=== PATIENT | male | born 1970 | race Caucasian/White ===

== ENCOUNTER → 2021-08-11 10:22 | Outpatient (BNVA) | payer OTHER, MEDICAID, SELFPAY | PROVIDERS: PCP Family Medicine; Visit Provider Nurse Practitioner Family | DX: Z13.6 Encounter for screening for cardiovascular disorders (principal); Z76.89 Persons encountering health services in other specified circumstances; Z71.3 Dietary counseling and surveillance; Z71.82 Exercise counseling; M54.40 Lumbago with sciatica, unspecified side; G89.29 Other chronic pain; M67.431 Ganglion, right wrist | CPT/HCPCS: 80053; 80061; 84443; 85025 ==

== ENCOUNTER → 2021-08-13 12:56 | Outpatient (BNVA) | payer OTHER, MEDICAID, SELFPAY | PROVIDERS: PCP Family Medicine; Visit Provider Nurse Practitioner Family | DX: R73.09 Other abnormal glucose (principal); R73.9 Hyperglycemia, unspecified | CPT/HCPCS: 83036 ==

== ENCOUNTER 2021-10-23 16:34 | Inpatient (IN) | payer MEDICAID, SELFPAY ==
[2021-10-23 16:43] VITALS: BP 176/94; PULSE 89; RESP 16; TEMP 36.6; O2SAT 96
[2021-10-23 17:34] LABS: Basophils # 0.1 10^3/uL (0.0-0.1); Basophils % 0.8 %; Eosinophils % 0.2 %; Hematocrit 53.8 % (42.0-52.0); Hemoglobin 18.6 g/dL (11.7-16.6); Lymphocytes # 2.8 10^3/uL (0.8-4.8); Lymphocytes % 28.2 %; Mean Corpuscular HGB Conc 34.6 g/dL (30.0-36.0); Mean Corpuscular Hemoglobin 29.8 pg (28.0-34.0); Mean Corpuscular Volume 86.1 fl (80-94); Mean Platelet Volume 10.9 fL (7.4-10.4); Monocytes # 0.9 10^3/uL (0.2-0.9); Monocytes % 8.6 %; Neutrophils # 6.09 10^3/uL (1.8-7.7); Neutrophils % 61.9 %; Nucleated Red Blood Cells % 0 %; Platelet Count 269 10^3/cmm (130-400); Red Blood Count 6.25 10^6/uL (4.1-5.3); Red Cell Distribution Width 11.9 % (12.1-15.1); White Blood Count 9.8 10^3/uL (4.0-10.0)
[2021-10-23 17:49] LABS: Amphetamines Screen Urine Negative (Negative); Barbiturates Screen Urine Negative (Negative); Benzodiazepines Screen Urine Negative (Negative); Cocaine Screen Urine Negative (Negative); Opiate Screen Urine Negative (Negative); PCP Screen Urine Negative (Negative); THC Screen Urine Negative (Negative)
--- NOTE | 2021-10-23 17:57 | CTR_ITS ---
PROCEDURE INFORMATION: Exam: CT Head Without Contrast Exam date and time: 10/23/2021 5:57 PM Age: 51 years old Clinical indication: Altered mental status/memory loss; Prior surgery; Patient HX: AMS TECHNIQUE: Imaging protocol: Computed tomography of the head without contrast. Radiation optimization: All CT scans at this facility use at least one of these dose optimization techniques: automated exposure control; mA and/or kV adjustment per patient size (includes targeted exams where dose is matched to clinical indication); or iterative reconstruction. COMPARISON: No relevant prior studies available. RADIATION DOSE METRICS: Total DLP (mGy-cm): 910 FINDINGS: Brain: Normal. No hemorrhage. Unremarkable white matter. No mass effect. Cerebral ventricles: No ventriculomegaly. Paranasal sinuses: Visualized sinuses are unremarkable. No fluid levels. Mastoid air cells: Visualized mastoid air cells are well aerated. Bones/joints: Unremarkable. No acute fracture. Soft tissues: Unremarkable. CT/CT head wo con* [id number] IMPRESSION: No acute intracranial abnormality.
--- NOTE | 2021-10-23 17:58 | ED.C_ITS ---
HPI - Psych General: Chief Complaint: Psychiatric Symptoms Stated Complaint: MHE Time Seen by Provider: 10/23/21 17:16 Source: family (spouse) Mode of arrival: ambulatory History of Present Illness: This patient is brought to the emergency department by his spouse. She provides most of the history as the patient is really reluctant to communicate much with this physician. She states that she has noted over the past number of days that he has become more withdrawn and also she is noted that he is having more auditory hallucinations. She states that there are periods where he will seem to interact in a normal fashion none there were more prolonged periods more recently when he begins to withdraw and going to his own world . She states that he occasionally had episodes like this in the past and used to drink quite heavily but has not drank for the last 6 months. She relates that he has never had thoughts of harming himself and has not expressed any of those thoughts recently. He really is otherwise healthy takes no daily medicines other than occasional [id number] analgesics for her chronic back pain. He has had no history of drug use. He has had no recent illness cough fever nausea vomiting diarrhea expect etc. No history of head trauma. He has never been treated for any psychiatric illnesses previously. Duration: intermittent and getting worse Associated symptoms: Reports auditory hallucinations and visual hallucinations; Deny homicidal ideation or suicidal ideation Treatments prior to arrival: none Review of Systems Const: Denies: fever(s) or chills Eyes: Denies: change in vision ENMT: Denies: throat pain Card: Denies: chest pain or palpitations Resp: Denies: dyspnea, productive cough or non-productive cough GI: Denies: abdominal pain, nausea or vomiting : Denies: flank pain, difficulty urinating or dysuria Musc: Reports: back pain; Denies: extremity pain or extremity swelling Skin/Breast: Denies: rash or pruritus Neuro: Denies: headache(s), numbness in extremities or weakness in extremities Psych: Reports: sleeping less, paranoia, visual hallucinations and auditory hallucinations; Denies: suicidal ideation or homicidal ideation Tam/Lymph: Denies: easy bruising or easy bleeding [facility] ED PFSH: Medical History Lumbar back pain with radiculopathy affecting lower extremity Sciatic leg pain both Surgical History No significant past surgical history Family History (Updated 08/18/21 @ 16:12 by ROBLES Hdez) Father Diabetes Mother Cancer Mandible Sister Diabetes Social History Smoking and tobacco status: former smoker Second hand smoke exposure: No Alcohol intake: former Desire information about alcohol rehabilitation?: No Counseling given: No Desire information about substance/drug rehabilitation?: No Counseling given: No Adopted: No Caregiver/support person: No Lives independently: Yes Household members: spouse and family Housing: House Marital status: Number of children: 1 Highest education level completed: High School Graduate service: No Current occupational status: unemployed Current occupational exposures/hazards: No Pets and animals: No History of recent travel: No Current gender identity: Male Physical Exam Narrative: EXAM NARRATIVE: Patient makes good eye contact but when asked questions the patient does not verbalize any answers he generally shrugs or will look at his to aid him in answering the questions. Const: COMMON NORMALS: no acute distress and alert GENERAL APPEARANCE: cooperative and well kempt HENMT: COMMON NORMALS: normocephalic, atraumatic and moist oral mucous membranes HEAD & SCALP: normocephalic and atraumatic FACE & SINUS: normal facial exam and sinuses nontender Eye: COMMON NORMALS: Equal, round and reactive pupils present, EOMs intact bilaterally and no scleral icterus PUPIL: Yes Equal, round and reactive pupils present Neck/C-Spine: COMMON NORMALS: full ROM, no lymphadenopathy, supple and no meningeal signs Lymph: LYMPHATIC: no lymphadenopathy noted Chest: COMMONS NORMALS: normal inspection of the chest and normal palpation of entire chest wall Resp: COMMON NORMALS: normal respiratory effort, No retractions, No use of accessory muscles and clear to auscultation bilaterally AUSCULTATION: clear to auscultation bilaterally Cardio: COMMON NORMALS: regular rhythm, No gallops present (Cardio), No murmurs present (Cardio) and Peripheral pulses 2+ throughout RHYTHM: regular rhythm PERIPHERAL PULSES: Peripheral pulses 2+ throughout GI: COMMON NORMALS: Normal to inspection, nondistended, normoactive bowel sounds present, Soft to palpation and non-tender PALPATION: Yes Soft to palpation : COMMON NORMALS: Yes no CVA tenderness BLADDER/KIDNEY EXAM: Yes no CVA tenderness Back/Pelvis: COMMON NORMALS: no CVA tenderness, thoracic and lumbar spine normal to inspection, no thoracic nor lumbar tenderness, thoraco-lumbar ROM normal and straight leg raise negative bilaterally Extremity: COMMON NORMALS: normal to inspection, full ROM, capillary refill normal, no calf tenderness and no pedal edema Neuro: COMMON NORMALS: moves all extremities, no focal motor deficits, no sensory deficits noted and gait normal SENSORIUM/ORIENTATION: Yes alert MENINGEAL SIGNS: Yes no meningeal signs GAIT: Yes Normal gait present Psych: APPEARANCE: Yes well kempt ATTITUDE: Yes calm ACTIVITY/MOTOR BEHAVIOR: Yes appropriate eye contact SPEECH: Yes Other speech symptoms (Will not speak to the physician) Skin: COMMON NORMALS: no rashes or lesions noted, no wounds and turgor normal GENERAL SKIN EXAM: no rashes or lesions noted and turgor normal Course ED course: Patient remained stable. He is medically cleared to be evaluated by psychiatry. Consultations: Consultation #1: Discussed with Dr. Pedraza who agreed to admit patient. Time: 18:56 Vital Signs: Vital signs: Vital Signs Temperature 97.8 F 10/23/21 16:43 Pulse Rate 82 10/23/21 18:42 Respiratory Rate 16 10/23/21 18:42 Blood Pressure 175/103 10/23/21 18:42 Pulse Oximetry 94 10/23/21 18:42 MDM - Psych Medical Decision Making Patient is currently medically cleared. No evidence at this time of any clear medical etiology for his psychosis. Both he and his spouse are willing to be a dmitted for further evaluation and treatment as indicated. Differential Diagnosis Likely acute psychosis Medical Records I reviewed the patient's medical records. Lab Data I reviewed the patient's lab results. : 10/23/21 17:26 10/23/21 17:[address] 10/23/21 17:57 IMPRESSION: No acute intracranial abnormality. Laboratory Results WBC 9.8 10^3/uL (4.0-10.0) 10/23/21 17:26 RBC 6.25 10^6/uL (4.1-5.3) H 10/23/21 17:26 Hgb 18.6 g/dL (11.7-16.6) H 10/23/21 17:26 Hct 53.8 % (42.0-52.0) H 10/23/21 17: MCV 86.1 fl (80-94) 10/23/21 17: MCH 29.8 pg (28.0-34.0) 10/23/21 17: MCHC 34.6 g/dL (30.0-36.0) 10/23/21 17: RDW 11.9 % (12.1-15.1) L 10/23/21 17: Plt Count 269 10^3/cmm (130-400) 10/23/21 17: MPV 10.9 fL (7.4-10.4) H 10/23/21 17: Neut % (Auto) 61.9 % 10/23/21 17: Lymph % (Auto) 28.2 % 10/23/21 17: Calloway % (Auto) 8.6 % 10/23/21 17: Eos % (Auto) 0.2 % 10/23/21 17: Baso % (Auto) 0.8 % 10/23/21 17: Neut # (Auto) 6.09 10^3/uL (1.8-7.7) 10/23/21 17: Lymph # (Auto) 2.8 10^3/uL (0.8-4.8) 10/23/21 17: Calloway # (Auto) 0.9 10^3/uL (0.2-0.9) 10/23/21 17: Eos # (Auto) 0.0 10^3/uL (0.0-0.8) 10/23/21 17: Baso # (Auto) 0.1 10^3/uL (0.0-0.1) 10/23/21 17: Nucleated RBC % (auto) 0 % 10/23/21: Nucleated RBCs # 0.0 /100WBC 10/23/21 17: Sodium 133 mmol/L (136-145) L 10/23/21 17: Potassium 3.9 mmol/L (3.5-5.1) 10/23/21 17: Chloride 96 mmol/L (98-107) L 10/23/21 17: Carbon Dioxide 20 mmol/L (22-29) L 10/23/21 17:26 Anion Gap 20.9 (5-19) H 10/23/21 17:26 BUN 9 mg/dL (6-20) 10/23/21 17:26 Creatinine 0.7 mg/dL (0.7-1.2) 10/23/21 17:26 GFR Calculation 118.4 mL/min (90-130) 10/23/21 17:26 Glucose 179 mg/dL (65-115) H 10/23/21 17:26 Calculated Osmolality 279 mOsm/kg (285-295) L 10/23/21 17:26 Calcium 9.9 mg/dL (8.5-10.5) 10/23/21 17:26 Total Bilirubin 0.4 mg/dL (0.15-1.2) 10/23/21 17:26 AST 17 U/L (0-40) 10/23/21 17:26 ALT 25 U/L (0-41) 10/23/21 17:26 Alkaline Phosphatase 97 IU/L (40-130) 10/23/21 17:26 Total Protein 7.6 g/dL (6.6-8.7) 10/23/21 17:26 Albumin 4.8 g/dL (3.5-5.2) 10/23/21 17:26 Globulin 2.8 g/dL (1.3-4.6) 10/23/21 17:26 TSH 1.10 uIU/mL (0.27-4.20) 10/23/21 17:26 Salicylates < 0.3 mg/dL (3-10) L 10/23/21 17:26 Urine Opiates Screen Negative ng/mL (Negative) 10/23/21 17:30 Acetaminophen < 5.0 ug/mL (10-30) L 10/23/21 17:26 Ur Barbiturates Screen Negative ng/mL (Negative) 10/23/21 17:30 Ur Phencyclidine Scrn Negative ng/mL (Negative) 10/23/21 17:30 Ur Amphetamines Screen Negative ng/mL (Negative) 10/23/21 17:30 U Benzodiazepines Scrn Negative ng/mL (Negative) 10/23/21 17:30 Urine Cocaine Screen Negative ng/mL (Negative) 10/23/21 17:30 U Marijuana (THC) Screen Negative ng/mL (Negative) 10/23/21 17:30 Ethyl Alcohol < 10 mg/dL (0-10) 10/23/21 17:[address] Head: Radiologist's impression: NAD Discharge Plan Discharge Clinical Impression: Acute psychosis Condition: Stable Prescriptions: No Action No Known Home Medications 0RF Referrals: Demetria Wu MD [Primary Care Provider] - Coding Level of Care Code ED Second Facing Baster for Chg Fwd Exam Comprehensive
[2021-10-23 18:01] LABS: Alanine Aminotransferase 25 U/L (0-41); Albumin Level 4.8 g/dL (3.5-5.2); Alkaline Phosphatase 97 IU/L (40-130); Aspartate Amino Transferase 17 U/L (0-40); Blood Urea Nitrogen 9 mg/dL (6-20); Calcium 9.9 mg/dL (8.5-10.5); Carbon Dioxide 20 mmol/L (22-29); Chloride 96 mmol/L (98-107); Globulin 2.8 g/dL (1.3-4.6); Glomerular Filtration Rate 118.4 mL/min (90-130); Glucose 179 mg/dL (65-115); Osmolality Calculated 279 mOsm/kg (285-295); Sodium 133 mmol/L (136-145); Total Bilirubin 0.4 mg/dL (0.15-1.2); Total Protein 7.6 g/dL (6.6-8.7)
[2021-10-23 18:02] LABS: Acetaminophen < 5.0 ug/mL (10-30); Alcohol Level < 10 mg/dL (0-10); Anion Gap 20.9 (5-19); Potassium 3.9 mmol/L (3.5-5.1); Salicylate < 0.3 mg/dL (3-10)
[2021-10-23 18:42] VITALS: BP 175/103; PULSE 82; RESP 16; O2SAT 94
[2021-10-23 20:44] VITALS: BP 155/79; PULSE 79; RESP 16; TEMP 36.6; O2SAT 96
[2021-10-23 21:34] LABS: Adenovirus Not Detected (NOT DETECT); Chlamydia Pneumoniae Not Detected (NOT DETECT); Coronavirus 229E,HKU1,NL63,OC4 Not Detected (NOT DETECT); Human Metapneumovirus Not Detected (NOT DETECT); Human Rhinovirus/Enterovirus Not Detected (NOT DETECT); Influenza A Not Detected (NOT DETECT); Influenza A H1 Not Detected (NOT DETECT); Influenza A H1-2009 Not Detected (NOT DETECT); Influenza A H3 Not Detected (NOT DETECT); Influenza B Not Detected (NOT DETECT); Mycoplasma Pneumoniae Not Detected (NOT DETECT); Parainfluenza Virus Type 1 Not Detected (NOT DETECT); Parainfluenza Virus Type 2 Not Detected (NOT DETECT); Parainfluenza Virus Type 3 Not Detected (NOT DETECT); Parainfluenza Virus Type 4 Not Detected (NOT DETECT); Respiratory Syncytial Virus A Not Detected (NOT DETECT); Respiratory Syncytial Virus B Not Detected (NOT DETECT); SARS-COV-2 Not Detected (NOT DETECT)
[2021-10-23 21:36] VITALS: BP 155/79; PULSE 79; RESP 16; TEMP 36.6; O2SAT 96
[2021-10-23 21:44] VITALS: BP 162/82; PULSE 84; RESP 16; TEMP 36.6; O2SAT 96
[2021-10-23 22:00] VITALS: BP 162/82; PULSE 84; RESP 16; TEMP 36.6; O2SAT 96
[2021-10-24 05:40] VITALS: BP 182/104; PULSE 84; RESP 17; TEMP 36.7; O2SAT 92
--- NOTE | 2021-10-24 06:31 | PC.NURSE ---
Neuro assessment performed by this RN after a bp reading of 182/104 was obtained. Patient exam was positive for LLE weakness. Patient has a history of lumbar pain with radiculopathy on LLE. Patient is alert and non verbal. FELICIA. Facial symetry intact. Equal medtronics technician bilateral. The remaining neuro assessment was non impressive. Patient denies pain.
--- NOTE | 2021-10-24 13:02 | W.PM.NPUH&PS ---
Providers/Chief Complaint Admitting Physician: Jose Pedraza MD Primary Care Provider: Demetria Wu MD Chief Complaint: MHE HPI NPU History of Present Illness Benja Nicole is a 51 year old male who presented to the emergency department with the following report: Chief Complaint: Psychiatric Symptoms Stated Complaint: MHE Time Seen by Provider: 10/23/21 17:16 Source: family (spouse) Mode of arrival: ambulatory History of Present Illness:?? This patient is brought to the emergency department by his spouse.? She provides most of the history as the patient is really reluctant to communicate much with this physician.? She states that she has noted over the past number of days that he has become more withdrawn and also she is noted that he is having more auditory hallucinations.? She states that there are periods where he will seem to interact in a normal fashion none there were more prolonged periods more recently when he begins to withdraw and going to his own world .? She states that he occasionally had episodes like this in the past and used to drink quite heavily but has not drank for the last 6 months.? She relates that he has never had thoughts of harming himself and has not expressed any of those thoughts recently.? He really is otherwise healthy takes no daily medicines other than occasional [id number] analgesics for her chronic back pain.? He has had no history of drug use.? He has had no recent illness cough fever nausea vomiting diarrhea expect etc.? No history of head trauma.? He has never been treated for any psychiatric illnesses previously. Duration: intermittent and getting worse Associated symptoms: Reports auditory hallucinations and visual hallucinations; Deny homicidal ideation or suicidal ideation Treatments prior to arrival: none He was admitted to the neuropsychiatric unit for definitive treatment of those issues. Multiple attempts were made to speak with him during the day as he had limited conversation with people often being mute in exchanges. Eventually he did come to the front office coordinator and request to see this process description writer as he stated he wanted to leave. I walked into the hallway saw him going into his room and same but he. I got to his room as he was sitting down on his bed and I said his name 2 more times while entering the room again no response I turn the light on and moved over to his bedside and he closed his eyes and sat there and never opened his eyes again, never blinked or move his eyeballs just that there Adilson breathing with his eyes closed. I began asking him questions to engage so that he had a conversation about his hospitalization and the concerns that were raised reportedly by his . He had no response to this. I reported to him that for me to feel comfortable with him leaving and not feel the need to put him on a 96-hour hold I would need for him to talk to me about what is going on he never even received weekly during that time I sat there asking questions and attempting to initiate his evaluation. Conversation with his could add no legitimate information as to why he would be behaving in this odd mute way. As stated above there has been episodes that were strange but reportedly never like this. Meds NPU Home Medications Medication Instructions Recorded Confirmed Last Taken Type No Known Home Medications 08/11/21 10/23/21 Unknown History Allergies Allergy/AdvReac Type Severity Reaction Status Date / Time No Known Allergies Allergy Unverified 10/23/21 16:47 PFSH NPU PFSH: Medical History Lumbar back pain with radiculopathy affecting lower extremity Sciatic leg pain both Surgical History No significant past surgical history Family History (Updated 08/18/21 @ 16:12 by ROBLES Hdez) Father Diabetes Mother Cancer Mandible Sister Diabetes Social History Smoking and tobacco status: former smoker Second hand smoke exposure: No Alcohol intake: former Desire information about alcohol rehabilitation?: No Counseling given: No Desire information about substance/drug rehabilitation?: No Counseling given: No Adopted: No Caregiver/support person: No Lives independently: Yes Household members: spouse and family Housing: House Marital status: Number of children: 1 Highest education level completed: High School Graduate service: No Current occupational status: unemployed Current occupational exposures/hazards: No Pets and animals: No History of recent travel: No Current gender identity: Male Mental Status Exam MSE Comments: This is an overweight versus obese white male in hospital scrubs with adequate grooming and absent eye contact. No abnormal movements except for stiff almost robotic motion. Uncooperative with exam in no acute distress. Speech was absent. Mood not described but affect was stoic. Thought process not able to determine thought content: He did not display self aggression or aggression towards others, there were no delusions reported or noted, there were no signs of clear sense that he was ending to internal stimuli. Attention and concentration were not intact and memory unable to the observed but none were formally tested. He was alert but we determine no orientation. Insight and judgment appears impaired impulse control appears impaired. Vitals/I&O/Wt Last Vital Signs Temp 98.1 F 10/24/21 05:40 Pulse 84 10/24/21 05:40 Resp 17 10/24/21 05:40 BP 182/104 10/24/21 05:40 Pulse Ox 92 10/24/21 05:40 Weight last 48 hrs Weight 99.79 kg Data NPU : 10/23/21 17:26 10/23/21 17:26 A&P Assessment and plan (1) Acute psychosis: Status: Acute (2) Lumbar back pain with radiculopathy affecting lower extremity: Status: Acute (3) Altered mental status: Status: Acute Plan This is a 51-year-old white male with a reported history of some possible issues with alcohol and some periods of odd times where he would be withdrawn into himself but never to this level who presents essentially mute and not engaging in the evaluation. 1. Continue current medication. 2. Continue every 15 minute checks for safety. 3. Encourage individual, group and milieu therapies. 4. Encourage sober living treatment after discharge at the highest level of care to which he is willing to commit. I. We will continue to try to engage him to figure out what he is experiencing but he currently appears psychotic will likely need medication. We will attempt to engage and may have to initiate a 96-hour hold to assist him further. Attestations NPU Medical Necessity Statement*: Inpatient hospitalization is medically necessary and the clinically appropriate intervention at this time. We will monitor medication to make changes as indicated. Patient will be in the hospital for over two midnights. Likely length of stay 4-6 days. Coding Level of Care Code Acute Environmental Remediation Engineer for Juan Manuel Vargas Diagnoses Acute psychosis F23 Lumbar back pain with radiculopathy affecting lower extremity M54.16 Altered mental status R41.82
[2021-10-24 13:58] VITALS: BP 141/89; PULSE 74; RESP 16; TEMP 36.7; O2SAT 95
[2021-10-24 21:10] VITALS: BP 152/91; PULSE 69; RESP 16; TEMP 36.5; O2SAT 100
--- NOTE | 2021-10-25 05:05 | PC.NURSE ---
Patient pacing [place]ne. Asking nurse to call FBI agent Varinder Underwood. Patient phone turned on. Patient contacted and said Hey baby and did not speak after that. Patient request to see physician. Informed patient that the would be in sometimes this morning to see him. Patient ahs a bewildered affect.
[2021-10-25 06:00] VITALS: BP 141/95; PULSE 119; RESP 20; TEMP 36.5; O2SAT 96
[2021-10-25 14:00] VITALS: BP 149/95; PULSE 104; RESP 18; TEMP 36.6; O2SAT 95
--- NOTE | 2021-10-25 18:38 | W.PM.NPUPNS ---
Subjective NPU Subjective: Interval history: Patient presented today reporting that he was ready to engage this magnetic tape typewriter operator. At least 2 other staff. He was observed walking in front of the nurses station he walked past that forward then came to an abrupt stop and walk backwards to a certain point and then stood there like he was stuck. I went out and engaged him in the police place we could speak privately. We sat down and reduce myself and once again we needed to do an evaluation to get a sense of what was going on. I asked him his birthday and he responded no answer. I asked him a few other questions which included how is he feeling/how is your mood and why are you here he answered no answer to all of them. I then asked him what was going on and that my understanding was that he wants to leave and so we talked to the week facilitate that which he just stared at me. I then gave him a yes/no questions would you like to stay or do you want to leave to which he gave a one-word response leave. I then explained to him that for me to make that decision I had to have some explanation for the behaviors that were seeing here in the hospital to which he gave his longest response which was no more questions. Mental Status Exam MSE Comments: This is an overweight versus obese white male in hospital scrubs with adequate grooming and limited eye contact.? No abnormal movements except for stiff almost robotic motion and at times odd motions like walking forward and then walking backwards. Mostly uncooperative with exam in no acute distress.? Speech was absent except for 5-6 responses of 1-3 words most of which were no answer. Mood not described but affect was stoic.? Thought process linear. Thought content: He did not display self aggression or aggression towards others, there were no delusions reported, but he did seem to be guarded and paranoid there were no signs of clear sense that he was ending to internal stimuli.? Attention and concentration were not intact and memory unable to the observed but none were formally tested.? He was alert but we determined no orientation.? Insight and judgment appears impaired impulse control appears impaired. Vitals/I&O/Wt Last Vital Signs Temp 97.9 F 10/25/21 14:00 Pulse 104 H 10/25/21 14:00 Resp 18 10/25/21 14:00 BP 149/95 10/25/21 14:00 Pulse Ox 95 10/25/21 14:00 Data NPU : 10/23/21 17:26 10/23/21 17:26 A&P Assessment and plan (1) Altered mental status: Status: Acute (2) Acute psychosis: Status: Acute (3) Lumbar back pain with radiculopathy affecting lower extremity: Status: Acute Plan This is a 51-year-old white male with a reported history of some possible issues with alcohol and some periods of odd times where he would be withdrawn into himself but never to this level who presents essentially mute and not engaging in the evaluation. 1.? Continue current medication. 2.? Continue every 15 minute checks for safety. 3.? Encourage individual, group and milieu therapies. 4.? Encourage sober living treatment after discharge at the highest level of care to which he is willing to commit. I.? We will continue to try to engage him to figure out what he is experiencing but he currently appears psychotic will likely need medication.? We will attempt to engage and may have to initiate a 96-hour hold to assist him further. Attestations NPU Medical Necessity Statement*: Inpatient hospitalization is medically necessary and the clinically appropriate intervention at this time. We will monitor medication to make changes as indicated. Likely length of stay 4-6 days. Coding Level of Care Code Acute Supply Room Clerk for Juan Manuel Vargas Diagnoses Altered mental status R41.82 Acute psychosis F23 Lumbar back pain with radiculopathy affecting lower extremity M54.16
[2021-10-25 21:27] VITALS: BP 158/92; PULSE 80; RESP 16; TEMP 36.6; O2SAT 99
[2021-10-26 06:00] VITALS: BP 151/86; PULSE 75; RESP 16; O2SAT 93; BMI 31.1
[2021-10-26 14:00] VITALS: BP 152/80; PULSE 81; RESP 16; TEMP 36.8; O2SAT 92
--- NOTE | 2021-10-26 16:19 | W.PM.NPUPNS ---
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 Attempted to engage him today and all he could muster was I'm okay apparently suggesting that we do not need to talk. I tried to implore him to understand the connection between our conversation and his possible discharge which appeared to be lost on him. I reported to him a plan to engage with him with his the next time she can come in. Mental Status Exam MSE Comments: P this is a overweight versus obese white male in hospital scrubs with adequate grooming but. No abnormal movements except for some possible stiffness. Uncooperative with exam in mild distress. Speech was once again very limited, only saying I am okay or I am fine. Mood not answered, affect odd. Thought process appeared linear. Thought content: He did not answer any questions specifically but did not have aggression directed towards himself or others, did not report delusions but appeared to have some paranoia/guardedness, it was unclear whether he was responding to internal stimuli. Attention and concentration were limited and memory was unable to be determined but none were formally tested. He is alert and oriented to self. Insight and judgment appear impaired impulse control appears impaired. Vitals/I&O/Wt Last Vital Signs Temp 98.2 F 10/26/21 14:00 Pulse 81 10/26/21 14:00 Resp 16 10/26/21 14:00 BP 152/80 10/26/21 14:00 Pulse Ox 92 10/26/21 14:00 Weight last 48 hrs Weight 99.79 kg Data NPU : 10/23/21 17:26 10/23/21 17:26 A&P Assessment and plan (1) Altered mental status: Status: Acute (2) Acute psychosis: Status: Acute (3) Lumbar back pain with radiculopathy affecting lower extremity: Status: Acute Plan This is a 51-year-old white male with a reported history of some possible issues with alcohol and some periods of odd times where he would be withdrawn into himself but never to this level who presents essentially mute and not engaging in the evaluation. 1.? Continue current medication. 2.? Continue every 15 minute checks for safety. 3.? Encourage individual, group and milieu therapies. 4.? Encourage sober living treatment after discharge at the highest level of care to which he is willing to commit. I.? We will continue to try to engage him to figure out what he is experiencing but he currently appears psychotic will likely need medication.? We will attempt to engage and may have to initiate a 96-hour hold to assist him further. Attestations NPU Medical Necessity Statement*: Inpatient hospitalization is medically necessary and the clinically appropriate intervention at this time. We will monitor medication to make changes as indicated. Likely length of stay 4-6 days. Coding Level of Care Code Acute Landscaping Crew Leader for [facility] Fwd Diagnoses Altered mental status R41.82 Acute psychosis F23 Lumbar back pain with radiculopathy affecting lower extremity M54.16
[2021-10-26 21:37] VITALS: BP 151/98; PULSE 101; RESP 16; TEMP 36.6; O2SAT 99
--- NOTE | 2021-10-27 03:44 | PC.NURSE ---
Patient ambulated to the nurses station. Patient would not verbalize needsand had a blank stare. He had a unsteady gait and appeared to have a slight tremor in his right leg. He was assisted back to his room by myself and another nurse.
[2021-10-27 05:15] VITALS: BP 139/93; PULSE 102; RESP 18; TEMP 36.6; O2SAT 94
--- NOTE | 2021-10-27 12:32 | NPU.GN ---
[facility] Topic:[place] Group Activity General Mood of Group: Benja did not attend or participate in group today.
[2021-10-27 14:00] VITALS: BP 136/95; PULSE 90; RESP 18; TEMP 36.7; O2SAT 97
[2021-10-27] MEDS: ARIPiprazole 10 mg Tablet PO (16:03)
[2021-10-27] MEDS: thiamine 100 mg Tablet PO (16:03)
--- NOTE | 2021-10-27 16:08 | PC.NURSE ---
New meds- New meds started of Thiamine 100 mg and Abilify 10 mg 1 x now and then QD on each. Patient took both medications without issue.
--- NOTE | 2021-10-27 16:11 | W.PM.NPUPNS ---
Subjective NPU Subjective: Interval history: Met with patient today with present. He was no more vocal but with her present we did discuss him presenting with psychosis and concern for possible occult drinking. We discussed the risks benefits and alternatives of a trial of Abilify along with adding some thiamine for the possibility of some Warnicke's presentation and they understood agreed to proceed as documented in his note. Mental Status Exam MSE Comments: This is a overweight versus obese white male in hospital scrubs with adequate grooming but limited eye contact No abnormal movements except for some possible stiffness and psychomotor retardation Uncooperative with exam in no acute distress.? Speech was once again very limited, with no real verbal responses.? Mood not answered, affect odd.? Thought process appeared linear.? Thought content: He did not answer any questions specifically but did not have aggression directed towards himself or others, did not report delusions but appeared to have some paranoia/guardedness, it was unclear whether he was responding to internal stimuli.? Attention and concentration were limited and memory was unable to be determined but none were formally tested.? He is alert and oriented to self.? Insight and judgment appear impaired impulse control appears impaired. Vitals/I&O/Wt Last Vital Signs Temp 98.0 F 10/27/21 14:00 Pulse 90 10/27/21 14:00 Resp 18 10/27/21 14:00 BP 136/95 10/27/21 14:00 Pulse Ox 97 10/27/21 14:00 Weight last 48 hrs Weight 99.79 kg Data NPU : 10/23/21 17:26 10/23/21 17:26 A&P Assessment and plan (1) Altered mental status: Status: Acute (2) Acute psychosis: Status: Acute (3) Lumbar back pain with radiculopathy affecting lower extremity: Status: Acute Plan This is a 51-year-old white male with a reported history of some possible issues with alcohol and some periods of odd times where he would be withdrawn into himself but never to this level who presents essentially mute and not engaging in the evaluation. 1.? Continue current medication. Start Abilify 10 mg p.o. every morning and thiamine 100 mg daily. 2.? Continue every 15 minute checks for safety. 3.? Encourage individual, group and milieu therapies. 4.? Encourage sober living treatment after discharge at the highest level of care to which he is willing to commit. 5. Appreciate consult with neurology. Discussed the case with Dr. Moore may consider Ativan for possible catatonia. We will follow her recommendations and await results. Attestations NPU Medical Necessity Statement*: Inpatient hospitalization is medically necessary and the clinically appropriate intervention at this time. We will monitor medication to make changes as indicated. Likely length of stay 8-10 days. Coding Level of Care Code Acute Equine Pharmacology Technician for [facility] Fwd Diagnoses Altered mental status R41.82 Acute psychosis F23 Lumbar back pain with radiculopathy affecting lower extremity M54.16
--- NOTE | 2021-10-27 19:06 | P.CONIM_ITS ---
Providers/Reason For Consult Consulting Physician/Specialty*: Jose Pedraza Reason for Consult*: altered mentation Attending Physician: Jose Pedraza MD Primary Care Provider: Demetria Wu MD History of Present Illness History of Present Illness Benja Nicole is a 51 year old male He retired from laying carpet and doing tile. He stopped in 2004 because of a back injury. He has not worked since then. He refused to apply for disability. 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 They moved to the [facility] 4 years ago. 9 days ago he changed. Wednesday he was fine. She went to work and he had dinner ready when she got home. Wednesday she got home she wondered if he was angry because he did not talk but he made dinner. Wednesday he had angry facial expressions but he was still cooking. She wondered if he was trying to co ncentrate or if something was on his mind. He talked very little. Wednesday he went to breakfast with her and they went shopping. She knew something was wrong because his eyes did not look right, like his eyes were glazed. He helped with the shopping. Same routine. Wednesday night she fell asleep and she noticed him flopping around. do you have something to tell me? Is there something you want to tell me? She said ok but all night she could feel him moving and fidgeting. She does not think that he slept. From there things started to change. Wednesday morning she was getting ready for work and he popped out of bed. Asking her if her day would be busy. Texted her brief notes. That night he was lying in the bed in the dark. He asked her to come lay down with him. He was cold, clammy. He took her hand. He said nothing. What do you want for dinner? He took her upstairs and he made dinner. He again did not sleep. That night at midnight she heard a sound and he was up getting dressed and said that he had an appointment. He climbed back into bed but he did not sleep, then got up and took a shower. He turns on the TV and saays that each screen applies to him in some way. It keeps changing the ad and that applied to him specifically. No special messages. The ads were for for him. He sat in the dark downstairs and he gave her a big hug and a kiss and said youre going to have the best gift for your birthday. Went back to bed but wiggled around all nigt and did not sleep. Wednesday she went to work. Her mother called her at 3 pm and said they are going to [place]. He had picked his daughter at school and called mother in law to inform them going to [place]. He told his daughter that she would not be seeing him again until she turns 20 (she is 12). Told mother in law that he and leaving for [place] without Cara. She knows something wrong so she left work and came home. Benja laying in bed in the dark. He denies the [place] thing. Says somebody wants to buy the script for his book for a movie. He went to [place] in 2004 to sell the movie rights to a little script but he was only there for a day. He was seeing things on TV relating to him at that time also. trying to make sense of all of this. She pushed him a little. He said she was right (she brought up the previous trip to [place]). She called the health department trying to figure out what was wrong. She knew that he had been in more pain lately. He was drinking heavily for years until quit 6 months ago. He was in a rage. He has always accused her of having affair with others. He always would get drunk and tell her she's no good. She is the target and he gets paranoid. He could talk for hours. Eventually she could fall asleep and wake to find him arguing with the television. 6 months ago his neighbors came over. He drank 8 beers in an hour. She knew he was at the snapping point. He was irate when the neighbor swept the cat off othe counter. He stopped buying beer and stopped drinking completely and would not let her drink either. No tantrums since then, calm but not taking. He has not talked with her mother in a year since she called police they took him out of the house. Review of systems is otherwise negative except for his severe chronic back pain which has been worse of late. At one point he was advised to seek surgery but he did not want to do that. Medications/Allergies Home Medications Medication Instructions Recorded Confirmed Last Taken Type No Known Home Medications 08/11/21 10/23/21 Unknown History Allergies Allergy/AdvReac Type Severity Reaction Status Date / Time No Known Allergies Allergy Unverified 10/23/21 16:47 Current Medications Generic Name Dose Route Start Last Admin Trade Name Era PRN Reason Stop Dose Admin Aripiprazole 10 mg 10/27/21 15:54 10/27/21 16:03 Aripiprazole 10 Mg Tablet PO 10 mg DAILY MARY Administration Thiamine Mononitrate 100 mg 10/27/21 15:53 10/27/21 16:03 Thiamine 100 Mg Tablet PO 100 mg DAILY MARY Administration PFSH Acute PFSH: Medical History Lumbar back pain with radiculopathy affecting lower extremity Sciatic leg pain both Surgical History No significant past surgical history Family History (Updated 08/18/21 @ 16:12 by ROBLES Hdez) Father Diabetes Mother Cancer Mandible Sister Diabetes Social History Smoking and tobacco status: former smoker Second hand smoke exposure: No Alcohol intake: former Desire information about alcohol rehabilitation?: No Counseling given: No Desire information about substance/drug rehabilitation?: No Counseling given: No Adopted: No Caregiver/support person: No Lives independently: Yes Household members: spouse and family Housing: House Marital status: Number of children: 1 Highest education level completed: High School Graduate service: No Current occupational status: unemployed Current occupational exposures/hazards: No Pets and animals: No History of recent travel: No Current gender identity: Male Vitals/I&O/Wt Last Vital Signs Temp 98.0 F 10/27/21 14:00 Pulse 90 10/27/21 14:00 Resp 18 10/27/21 14:00 BP 136/95 10/27/21 14:00 Pulse Ox 97 10/27/21 14:00 Weight last 48 hrs Weight 220 lb Physical Exam Narrative: EXAM NARRATIVE: I examined the patient briefly as he walked down the [place] and later while he was sitting and eating his dinner I talked with him. In general he has a healthy appearance with a somewhat florid complexion. Mental status exam: He was reluctant to tell me the month but eventually he said it was between September and October. He was able to tell me that he has a daughter who is 12 years old which is accurate and was able to tell me that he worked laying tile and carpet. He speaks in a very soft and somewhat high- pitched voice. He did not appear to be responding to internal stimuli. Cranial nerves grossly intact. Hearing intact to soft spoken voice. I did not check visual mabry. Motor reveals no tremor. He was feeding himself without tremor. He is right- handed. He was able to walk down the bourne without assistance although I noticed that he stumbled slightly to the right. Data : 10/23/21 17:26 10/23/21 17:26 A&P Assessment and plan (1) Altered mental status: 51-year-old man with probable agitated depression. He has been self-medicating heavily with alcohol for many years and recently stopped abruptly after a fight with a neighbor. He has continued to function in the home until recently and over the course of the last week has become progressively more agitated, stopped sleeping, went multiple nights without sleep and then lost the ability to communicate. CT scan of the head performed 10/23/2021 was unremarkable. His laboratory studies on arrival the show volume contraction with normal liver enzymes, normal renal function. Probably those studies should be repeated. His nutritional status is good and Dr. Pedraza has already treated him with thiamine but this does not appear to be a toxic nutritional encephalopathy. This is too abrupt in onset to fear a slow virus disorder and is probably not profound enough to suggest paraneoplastic encephalopathy but MRI with contrast would be a good idea to make sure. I will be glad to follow him along with you, particularly in regard to his low back pain. Status: Acute (2) Acute psychosis: Status: Acute (3) Lumbar back pain with radiculopathy affecting lower extremity: Status: Acute Coding Level of Care Code Acute Church Worker for [facility] Diagnoses Altered mental status R41.82 Acute psychosis F23 Lumbar back pain with radiculopathy affecting lower extremity M54.16
[2021-10-27 22:00] VITALS: BP 145/84; PULSE 87; RESP 18; TEMP 36.6; O2SAT 94
[2021-10-28 06:00] VITALS: BP 125/85; PULSE 84; RESP 17; TEMP 36.7; O2SAT 97
[2021-10-28] MEDS: thiamine 100 mg Tablet PO (09:04)
[2021-10-28] MEDS: ARIPiprazole 10 mg Tablet PO (09:04)
[2021-10-28 11:18] LABS: Basophils # 0.1 10^3/uL (0.0-0.1); Basophils % 0.6 %; Eosinophils % 0.3 %; Hematocrit 53.7 % (42.0-52.0); Hemoglobin 18.3 g/dL (11.7-16.6); Lymphocytes # 2.3 10^3/uL (0.8-4.8); Lymphocytes % 20.5 %; Mean Corpuscular HGB Conc 34.1 g/dL (30.0-36.0); Mean Corpuscular Hemoglobin 29.6 pg (28.0-34.0); Mean Corpuscular Volume 86.9 fl (80-94); Mean Platelet Volume 11.6 fL (7.4-10.4); Monocytes # 0.9 10^3/uL (0.2-0.9); Monocytes % 7.7 %; Neutrophils % 70.6 %; Nucleated Red Blood Cells % 0 %; Platelet Count 263 10^3/cmm (130-400); Red Blood Count 6.18 10^6/uL (4.1-5.3); Red Cell Distribution Width 11.7 % (12.1-15.1); White Blood Count 11.1 10^3/uL (4.0-10.0)
[2021-10-28 11:43] LABS: Erythrocyte Sedimentation Rate 7 mm/hr (0-10)
[2021-10-28 11:53] LABS: Alanine Aminotransferase 28 U/L (0-41); Albumin Level 4.4 g/dL (3.5-5.2); Alkaline Phosphatase 96 IU/L (40-130); Aspartate Amino Transferase 16 U/L (0-40); Blood Urea Nitrogen 12 mg/dL (6-20); Carbon Dioxide 24 mmol/L (22-29); Chloride 102 mmol/L (98-107); Globulin 2.8 g/dL (1.3-4.6); Glomerular Filtration Rate 101.5 mL/min (90-130); Glucose 171 mg/dL (65-115); Osmolality Calculated 286 mOsm/kg (285-295); Sodium 136 mmol/L (136-145); Total Bilirubin 0.3 mg/dL (0.15-1.2); Total Protein 7.2 g/dL (6.6-8.7)
[2021-10-28 12:28] LABS: Vitamin B12 447 pg/mL (232-1245)
--- NOTE | 2021-10-28 13:08 | NPU.GN ---
[facility] Topic: Triggers, Coping Skills, Crisis Intervention Plan General Mood of Group: Benja attended group and participated. His hygiene is good. He is a bit shy. Benja was aided by this junior underwriter and completed the new [facility] patient packet for services.
[2021-10-28 14:00] VITALS: BP 124/78; PULSE 73; RESP 16; TEMP 36.6; O2SAT 99
--- NOTE | 2021-10-28 14:14 | P.NPUPN_ITS ---
Subjective NPU Subjective: Interval history: Patient presents today seeming a little less distress with no more communicative in general. We discussed the fact that he is scheduled for an MRI and that MRI was postponed today till tomorrow morning. He appeared to understand what I was saying. Otherwise he laid in the bed and was fairly unreactive to questions. He did answer about 3 of them but each of them he gave the same response which was here and there. Otherwise he seems less rigid physically slightly. He seems to be eating and sleeping well but still presents as an almost locked in individual. When asked if he was feeling any better he did say here and there. Mental Status Exam MSE Comments: This is a overweight versus obese white male in hospital scrubs with adequate grooming but limited eye contact No abnormal movements except for some possible stiffness and psychomotor retardation Uncooperative with exam in no acute distress.? Speech was once again very limited, with no real verbal responses.? Mood not answered, affect odd.? Thought process appeared linear.? Thought content: He did not answer any questions specifically but did not have aggression directed towards himself or others, did not report delusions but appeared to have some paranoia/guardedness, it was unclear whether he was responding to internal stimuli.? Attention and concentration were limited and me jessika was unable to be determined but none were formally tested.? He is alert and oriented to self.? Insight and judgment appear impaired. Impulse control appears impaired. Vitals/I&O/Wt Last Vital Signs Temp 97.8 F 10/28/21 14:00 Pulse 73 10/28/21 14:00 Resp 16 10/28/21 14:00 BP 124/78 10/28/21 14:00 Pulse Ox 99 10/28/21 14:00 Data NPU : 10/28/21 10:16 10/28/21 10:16 A&P Assessment and plan (1) Altered mental status: Status: Acute (2) Acute psychosis: Status: Acute (3) Lumbar back pain with radiculopathy affecting lower extremity: Status: Acute Plan This is a 51-year-old white male with a reported history of some possible issues with alcohol and some periods of odd times where he would be withdrawn into himself but never to this level who presents essentially mute and not engaging in the evaluation. 1.? Continue current medication.? Started Abilify 10 mg p.o. every morning and thiamine 100 mg daily. 2.? Continue every 15 minute checks for safety. 3.? Encourage individual, group and milieu therapies. 4.? Encourage sober living treatment after discharge at the highest level of care to which he is willing to commit. 5.? Appreciate consult with neurology.? Discussed the case with Dr. Moore may consider Ativan for possible catatonia.? We will follow her recommendations and await results. Still awaiting MRI. Attestations NPU Medical Necessity Statement*: Inpatient hospitalization is medically necessary and the clinically appropriate intervention at this time. We will monitor medication to make changes as indicated. Likely length of stay 8-10 days. Coding Level of Care Code Acute Clinical Case Manager for [facility] Diagnoses Altered mental status R41.82 Acute psychosis F23 Lumbar back pain with radiculopathy affecting lower extremity M54.16
[2021-10-28 21:21] VITALS: BP 143/88; PULSE 80; RESP 15; TEMP 36.6; O2SAT 98
[2021-10-29 06:00] VITALS: BP 134/82; PULSE 78; RESP 18; TEMP 36.9; O2SAT 98
[2021-10-29] MEDS: thiamine 100 mg Tablet PO (09:40)
[2021-10-29] MEDS: ARIPiprazole 10 mg Tablet PO (09:40)
--- NOTE | 2021-10-29 09:47 | PC.NURSE ---
pt is off the floor with imaging for MRI, MENTAL RETARDATION AIDE Chary and security RD is with pt
--- NOTE | 2021-10-29 09:48 | W.PM.NPUPNS ---
Subjective NPU Subjective: Interval history: Patient presents today with a slight increase in his expression and ability to communicate but continued mostly mute interactions. He had his MRI today and we discussed the fact that the good news is that there was nothing concerning or problematic noted on the MRIs. We also discussed that that means that what we are dealing with here appears to be psychosis with some likely catatonia. 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 Mental Status Exam MSE Comments: This is a overweight versus obese white male in hospital scrubs with adequate grooming but limited eye contact No abnormal movements except for some possible stiffness and psychomotor retardation slightly more cooperative with exam in no acute distress.? Speech was once again very limited, with no continuous or spontaneous verbal responses.? Mood not answered, affect odd.? Thought process appeared linear.? Thought content: He did not answer any questions specifically but did not have aggression directed towards himself or others, did not report delusions but appeared to have some paranoia/guardedness, it was unclear whether he was responding to internal stimuli.? Attention and concentration were limited and memory was unable to be determined but none were formally tested.? He is alert and oriented to self.? Insight and judgment appear impaired.? Impulse control appears impaired. Vitals/I&O/Wt Last Vital Signs Temp 98.5 F 10/29/21 06:00 Pulse 78 10/29/21 06:00 Resp 18 10/29/21 06:00 BP 134/82 10/29/21 06:00 Pulse Ox 98 10/29/21 06:00 Data NPU : 10/28/21 10:16 10/28/21 10:16 A&P Assessment and plan (1) Altered mental status: Status: Acute (2) Acute psychosis: Status: Acute (3) Lumbar back pain with radiculopathy affecting lower extremity: Status: Acute Plan This is a 51-year-old white male with a reported history of some possible issues with alcohol and some periods of odd times where he would be withdrawn into himself but never to this level who presents essentially mute and not engaging in the evaluation. 1.? Continue current medication.? Will increase Abilify to 15 mg p.o. every morning and thiamine 100 mg daily. 2.? Continue every 15 minute checks for safety. 3.? Encourage individual, group and milieu therapies. 4.? Encourage sober living treatment after discharge at the highest level of care to which he is willing to commit. 5.? Appreciate consult with neurology.? Discussed the case with Dr. Moore may consider Ativan for possible catatonia.? Attestations NPU Medical Necessity Statement*: Inpatient hospitalization is medically necessary and the clinically appropriate intervention at this time. We will monitor medication to make changes as indicated. Likely length of stay 7-9 days. Coding Level of Care Code Acute Contract Administrative Assistant for [facility] Fwd Diagnoses Altered mental status R41.82 Acute psychosis F23 Lumbar back pain with radiculopathy affecting lower extremity M54.16
--- NOTE | 2021-10-29 10:15 | MR_ITS ---
WS: [id number] MRI BRAIN WITH AND WITHOUT CONTRAST HISTORY: ALTERED MENTAL STATUS COMPARISON: CT head 10/23/2019. TECHNIQUE: Multiplanar imaging performed through the brain with MultiHance 20 ml's IV. No acute infarcts are seen. Tompkins-white matter differentiation is well preserved. No susceptibility artifacts or prior lacunar infarcts. Ventricles and extra-axial spaces are normal. Clivus and pituitary gland are normal. Visualized posterior fossa and brainstem are also normal. Postcontrast images are negative for masses or vascular malformations. Dural venous sinuses are normal. Paranasal sinuses: Small amount of fluid and mucous retention cyst in the LEFT maxillary sinus. Mastoid air cells: Normal. Calvarium and scalp: Normal. MR/MR head wo/w con [id number] IMPRESSION: 1. No acute infarct or enhancing mass. 2. No significant volume loss or atrophy.
[2021-10-29 14:00] VITALS: BP 128/88; PULSE 86; RESP 20; TEMP 36.6; O2SAT 97
[2021-10-29 22:00] VITALS: BP 145/105; PULSE 88; RESP 16; TEMP 37; O2SAT 97
[2021-10-30 06:00] VITALS: BP 144/90; PULSE 86; RESP 18; TEMP 37; O2SAT 96
[2021-10-30] MEDS: ARIPiprazole 30 mg Tablet 15 MG PO (10:30)
[2021-10-30] MEDS: thiamine 100 mg Tablet PO (10:31)
[2021-10-30 14:00] VITALS: BP 135/81; PULSE 81; RESP 18; TEMP 37; O2SAT 94
--- NOTE | 2021-10-30 14:16 | P.NPUPN_ITS ---
Subjective NPU Subjective: Interval history: . Patient presents today reporting that things are okay yesterday. Today was the first time he had a conversation and even bordered on [id number]. He still has significant thought blocking and inability to transmit information. He did share that there were some family issues that had led him to get very depressed right before this happened. He still is confused about the other aspects of how he got to being how he is right now. We discussed the risk benefits and alternatives of initiating an antidepressant and discussed Lexapro and he understood and agreed to proceed as is documented in this note. Mental Status Exam MSE Comments: This is a overweight versus obese white male in hospital scrubs with adequate grooming but limited eye contact No abnormal movements except for some stiffness that is improving and psychomotor retardation slightly more cooperative with exam in no acute distress.? Speech was once again very limited, with no continuous or spontaneous verbal responses, but more interactive and responsive.? Mood not answered, but he did share that he was quite depressed when this episode started, affect odd.? Thought process appeared linear.? Thought content: He did not answer any questions specifically but did not have aggression directed towards himself or others, did not report delusions but appeared to have some paranoia/guardedness, it was unclear whether he was responding to internal stimuli.? Attention and concentration were limited and memory was unable to be determined but none were formally tested.? He is alert and oriented to self.? Insight and judgment appear limited.? Impulse control appears limited. Vitals/I&O/Wt Last Vital Signs Temp 98.6 F 10/30/21 06:00 Pulse 86 10/30/21 06:00 Resp 18 10/30/21 06:00 BP 144/90 10/30/21 06:00 Pulse Ox 96 10/30/21 06:00 Data NPU : 10/28/21 10:16 10/28/21 10:16 A&P Assessment and plan (1) Depression: Status: Acute (2) Altered mental status: Status: Acute (3) Acute psychosis: Status: Acute (4) Lumbar back pain with radiculopathy affecting lower extremity: Status: Acute Plan This is a 51-year-old white male with a reported history of some possible issues with alcohol and some periods of odd times where he would be withdrawn into himself but never to this level who presents essentially mute and not engaging in the evaluation. 1.? Continue current medication.? Increased Abilify to 15 mg p.o. every morning and thiamine 100 mg daily start Lexapro 10 mg po qam in the morning.? 2.? Continue every 15 minute checks for safety. 3.? Encourage individual, group and milieu therapies. 4.? Encourage sober living treatment after discharge at the highest level of care to which he is willing to commit. 5.? Appreciate consult with neurology.? Discussed the case with Dr. Moore may consider Ativan for possible catatonia.? 6. We will consider major depressive disorder severe with psychosis Attestations NPU Medical Necessity Statement*: Inpatient hospitalization is medically necessary and the clinically appropriate intervention at this time. We will monitor medication to make changes as indicated. Likely length of stay 6-8 days Coding Level of Care Code Acute Coal Equipment Operator for [facility] Fwd Diagnoses Depression F32.A Altered mental status R41.82 Acute psychosis F23 Lumbar back pain with radiculopathy affecting lower extremity M54.16
[2021-10-30 20:50] VITALS: BP 155/110; PULSE 70; RESP 17; TEMP 36.8; O2SAT 97
[2021-10-31 06:00] VITALS: BP 151/86; PULSE 63; RESP 16; TEMP 36.6; O2SAT 96
[2021-10-31] MEDS: escitalopram 10 mg Tablet PO (10:32)
[2021-10-31] MEDS: ARIPiprazole 30 mg Tablet 15 MG PO (10:32)
[2021-10-31] MEDS: thiamine 100 mg Tablet PO (10:32)
[2021-10-31 14:00] VITALS: BP 135/71; PULSE 86; RESP 17; TEMP 36.9; O2SAT 98
--- NOTE | 2021-10-31 18:03 | W.PM.NPUPNS ---
Subjective NPU Subjective: Interval history: Patient presents today making slow but steady improvement in being able to have basic conversation. Still lacks spontaneous conversive abilities. He is able to give a couple word answers but still not really able to articulate things conceptually. Based on he is a very functional communicator so he has a ways to go. He denies any side effect from medications. Mental Status Exam MSE Comments: This is a overweight versus obese white male in hospital scrubs with adequate grooming but limited eye contact. No abnormal movements except for some stiffness that is improving and psychomotor retardation. Slightly more cooperative with exam in no acute distress.? Speech was once again very limited, with no continuous or spontaneous verbal responses, but more interactive and responsive with greater expression with his face/body. Mood described as okay, affect odd.? Thought process appeared linear.? Thought content: He did not answer any questions specifically but did not have aggression directed towards himself or others, did not report delusions but appeared to have some paranoia/guardedness, it was unclear whether he was responding to internal stimuli.? Attention and concentration were limited and memory was unable to be determined but none were formally tested.? He is alert and oriented to self.? Insight and judgment appear limited.? Impulse control appears limited. Vitals/I&O/Wt Last Vital Signs Temp 99.1 F 10/31/21 21:36 Pulse 70 10/31/21 21:36 Resp 16 10/31/21 21:36 BP 139/81 10/31/21 21:36 Pulse Ox 98 10/31/21 14:00 Data NPU : 10/28/21 10:16 10/28/21 10:16 A&P Assessment and plan (1) Depression: Status: Acute (2) Altered mental status: Status: Acute (3) Acute psychosis: Status: Acute (4) Lumbar back pain with radiculopathy affecting lower extremity: Status: Acute Plan This is a 51-year-old white male with a reported history of some possible issues with alcohol and some periods of odd times where he would be withdrawn into himself but never to this level who presents essentially mute and not engaging in the evaluation. 1.? Continue current medication.? Increased Abilify to 15 mg p.o. every morning and thiamine 100 mg daily, and started Lexapro 10 mg po qam in the morning.? 2.? Continue every 15 minute checks for safety. 3.? Encourage individual, group and milieu therapies. 4.? Encourage sober living treatment after discharge at the highest level of care to which he is willing to commit. 5.? Appreciate consult with neurology.? Discussed the case with Dr. Moore may consider Ativan for possible catatonia.? 6.? We will consider major depressive disorder severe with psychosis Attestations NPU Medical Necessity Statement*: Inpatient hospitalization is medically necessary and the clinically appropriate intervention at this time. We will monitor medication to make changes as indicated. Likely length of stay 5-7 days Coding Level of Care Code Acute Auto Hauler for [facility] Fwd Diagnoses Depression F32.A Altered mental status R41.82 Acute psychosis F23 Lumbar back pain with radiculopathy affecting lower extremity M54.16
[2021-10-31 21:36] VITALS: BP 139/81; PULSE 70; RESP 16; TEMP 37.3
[2021-11-01 06:00] VITALS: BP 132/84; PULSE 71; RESP 16; TEMP 36.4; O2SAT 94
[2021-11-01] MEDS: ARIPiprazole 30 mg Tablet 15 MG PO (09:01)
[2021-11-01] MEDS: thiamine 100 mg Tablet PO (09:01)
[2021-11-01] MEDS: escitalopram 10 mg Tablet PO (09:02)
[2021-11-01 14:00] VITALS: BP 118/82; PULSE 85; RESP 18; TEMP 36.6; O2SAT 96
--- NOTE | 2021-11-01 15:48 | W.PM.NPUPNS ---
Subjective NPU Subjective: Interval history: Patient presents today reporting that he is doing okay. There is still some stiffness and robotic nature to his presentation. He still seems to have some significant limitations in his redness. Reported baseline. His is supposed to come tomorrow and weigh in on how much movement we are making towards baseline. He is able to respond without significant pauses finally but still pauses nonetheless. He denies any new problems denies any side effects to medications and appears to be eating and sleeping well. Mental Status Exam MSE Comments: This is a overweight versus obese white male in hospital scrubs with adequate grooming but limited eye contact.? No abnormal movements except for some stiffness that is improving and psychomotor retardation.? Slightly more cooperative with exam in no acute distress.? Speech was once again very limited, with no continuous or spontaneous verbal responses, but more interactive and responsive with greater expression with his face/body.? Mood described as fine, affect still odd.? Thought process appeared linear.? Thought content: He did not answer any questions specifically but did not have aggression directed towards himself or others, did not report delusions but appeared to have some paranoia/guardedness, it was unclear whether he was responding to internal stimuli.? Attention and concentration were limited and memory was unable to be determined but none were formally tested.? He is alert and oriented to self.? Insight and judgment appear limited.? Impulse control appears limited. Vitals/I&O/Wt Last Vital Signs Temp 97.8 F 11/01/21 14:00 Pulse 85 11/01/21 14:00 Resp 18 11/01/21 14:00 BP 118/82 11/01/21 14:00 Pulse Ox 96 11/01/21 14:00 Data NPU : 10/28/21 10:16 10/28/21 10:16 A&P Assessment and plan (1) Depression: Status: Acute (2) Altered mental status: Status: Acute (3) Acute psychosis: Status: Acute (4) Lumbar back pain with radiculopathy affecting lower extremity: Status: Acute Plan This is a 51-year-old white male with a reported history of some possible issues with alcohol and some periods of odd times where he would be withdrawn into himself but never to this level who presents essentially mute and not engaging in the evaluation. 1.? Continue current medication.? Increased Abilify to 15 mg p.o. every morning and thiamine 100 mg daily, and started Lexapro 10 mg po qam in the morning.? 2.? Continue every 15 minute checks for safety. 3.? Encourage individual, group and milieu therapies. 4.? Encourage sober living treatment after discharge at the highest level of care to which he is willing to commit. 5.? Appreciate consult with neurology.? Discussed the case with Dr. Moore may consider Ativan for possible catatonia.? 6.? We will consider major depressive disorder severe with psychosis Attestations NPU Medical Necessity Statement*: Inpatient hospitalization is medically necessary and the clinically appropriate intervention at this time. We will monitor medication to make changes as indicated. Likely length of stay 4-6 days Coding Level of Care Code Acute Cancer Registry Coordinator for g Fwd Diagnoses Depression F32.A Altered mental status R41.82 Acute psychosis F23 Lumbar back pain with radiculopathy affecting lower extremity M54.16
[2021-11-01 21:25] VITALS: BP 104/69; PULSE 69; RESP 17; TEMP 36.7; O2SAT 97
[2021-11-02 06:00] VITALS: BP 132/83; PULSE 69; RESP 18; TEMP 36.4; O2SAT 95
--- NOTE | 2021-11-02 08:53 | W.PM.NPUPNS ---
Subjective NPU Subjective: Interval history: Patient presents today reporting that he is doing a little better. He still appears to be cognitively limited and having thought blocking but is beginning to put his words together in a more natural way. Able to give more robust historical data. His is supposed to visit later and we will reach out to her and get a sense of where she feels he is compared to normal. He denies any side effects of the medication. Reports he is eating and sleeping okay. Mental Status Exam MSE Comments: This is a overweight versus obese white male in hospital scrubs with adequate grooming but limited eye contact.? No abnormal movements except for some stiffness that is improving and psychomotor retardation.? Slightly more cooperative with exam in no acute distress.? Speech was once again very limited, with more spontaneity in verbal responses, and more interactive and responsive with greater expression with his face/body.? Mood described as okay, affect less odd.? Thought process appeared linear, moving towards greater organization Thought content: He denied suicidal or homicidal ideation, did not report delusions but appeared to have some paranoia/guardedness, it was unclear whether he was responding to internal stimuli.? Attention and concentration were limited and memory was unable to be determined but none were formally tested.? He is alert and oriented to self.? Insight and judgment appear limited.? Impulse control appears limited. Vitals/I&O/Wt Last Vital Signs Temp 97.6 F 11/02/21 06:00 Pulse 69 11/02/21 06:00 Resp 18 11/02/21 06:00 BP 132/83 11/02/21 06:00 Pulse Ox 95 11/02/21 06:00 Data NPU : 10/28/21 10:16 10/28/21 10:16 A&P Assessment and plan (1) Major depressive disorder with psychotic features: Status: Acute (2) Altered mental status: Status: Acute (3) Acute psychosis: Status: Acute (4) Lumbar back pain with radiculopathy affecting lower extremity: Status: Acute Plan This is a 51-year-old white male with a reported history of some possible issues with alcohol and some periods of odd times where he would be withdrawn into himself but never to this level who presents essentially mute and not engaging in the evaluation. 1.? Continue current medication.? Increased Abilify to 15 mg p.o. every morning and thiamine 100 mg daily, and started Lexapro 10 mg po qam in the morning.? 2.? Continue every 15 minute checks for safety. 3.? Encourage individual, group and milieu therapies. 4.? Encourage sober living treatment after discharge at the highest level of care to which he is willing to commit. 5.? Appreciate consult with neurology.? Discussed the case with Dr. Moore may consider Ativan for possible catatonia.? Attestations NPU Medical Necessity Statement*: Inpatient hospitalization is medically necessary and the clinically appropriate intervention at this time. We will monitor medication to make changes as indicated. Likely length of stay 3-5 days Coding Level of Care Code Acute Book Jacket Cover Machine Operator for [facility] Fwd Diagnoses Major depressive disorder with psychotic features F32.3 Altered mental status R41.82 Acute psychosis F23 Lumbar back pain with radiculopathy affecting lower extremity M54.16
[2021-11-02] MEDS: ARIPiprazole 30 mg Tablet 15 MG PO (09:39)
[2021-11-02] MEDS: escitalopram 10 mg Tablet PO (09:41)
[2021-11-02] MEDS: thiamine 100 mg Tablet PO (09:41)
[2021-11-02 14:00] VITALS: BP 125/78; PULSE 76; RESP 17; TEMP 37; O2SAT 98
[2021-11-02 20:35] VITALS: BP 143/83; PULSE 77; RESP 17; TEMP 36.7; O2SAT 95
[2021-11-02] MEDS: calcium carbonate 500 mg Chew Tablet 1000 MG PO (21:19)
[2021-11-03 06:00] VITALS: BP 138/86; PULSE 70; RESP 16; TEMP 36.1; O2SAT 97
[2021-11-03] MEDS: ARIPiprazole 30 mg Tablet 15 MG PO (10:19)
[2021-11-03] MEDS: escitalopram 10 mg Tablet PO (10:21)
[2021-11-03] MEDS: thiamine 100 mg Tablet PO (10:21)
--- NOTE | 2021-11-03 13:03 | NPU.GN ---
[facility] Group Topic: Whine Barrel Activity General Mood of Group: Benja did not attend group today.
[2021-11-03 14:00] VITALS: BP 125/79; PULSE 82; RESP 18; TEMP 36.6; O2SAT 95
--- NOTE | 2021-11-03 18:05 | W.PM.NPUPNS ---
Subjective NPU Subjective: Interval history: Patient presents today unchanged but reporting that he is feeling much better. He reports that he is taking his medication and that it is effective and has really helped him feel better. We did have an opportunity reach out to his with seen in yesterday and she reports that he is back on track and from her sense back to being himself. We discussed the risk-benefit and alternatives of discharging him tomorrow and he understood and agreed proceed as is documented in this note. We will work with his discharge planning as she reports she will pick them up but it will have to be after work. Medications: Medication Review Details: This is a overweight versus obese white male in hospital scrubs with adequate grooming but limited eye contact.? No abnormal movements except for some stiffness that is improving and psychomotor retardation.? More cooperative with exam in no acute distress.? Speech was slightly more spontaneous in verbal responses, and more interactive and responsive with greater expression with his face/body.? Mood described as pretty good, affect less odd.? Thought process appeared linear, moving towards greater organization Thought content: He denied suicidal or homicidal ideation, did not report delusions and appeared to have less paranoia/guardedness, it was unclear whether he was responding to internal stimuli.? Attention and concentration were and memory was more reliable but none were formally tested.? He is alert and oriented to self.? Insight and judgment appear limited.? Impulse control appears limited. Vitals/I&O/Wt Last Vital Signs Temp 97.7 F 11/03/21 21:32 Pulse 68 11/03/21 21:32 Resp 18 11/03/21 21:32 BP 142/82 11/03/21 21:32 Pulse Ox 96 11/03/21 21:32 Data NPU : 10/28/21 10:16 10/28/21 10:16 A&P Assessment and plan (1) Major depressive disorder with psychotic features: Status: Acute (2) Altered mental status: Status: Acute (3) Acute psychosis: Status: Acute (4) Lumbar back pain with radiculopathy affecting lower extremity: Status: Acute Plan This is a 51-year-old white male with a reported history of some possible issues with alcohol and some periods of odd times where he would be withdrawn into himself but never to this level who presents essentially mute and not engaging in the evaluation. 1.? Continue current medication.? Increased Abilify to 15 mg p.o. every morning and thiamine 100 mg daily, and started Lexapro 10 mg po qam in the morning.? 2.? Continue every 15 minute checks for safety. 3.? Encourage individual, group and milieu therapies. 4.? Encourage sober living treatment after discharge at the highest level of care to which he is willing to commit. 5.? Appreciate consult with neurology.? Attestations NPU Medical Necessity Statement*: Inpatient hospitalization is medically necessary and the clinically appropriate intervention at this time. We will monitor medication to make changes as indicated. Likely length of stay 1-3 days. Likely discharge tomorrow afternoon. Coding Level of Care Code Acute Desulfurizer Machine for [facility] Diagnoses Major depressive disorder with psychotic features F32.3 Altered mental status R41.82 Acute psychosis F23 Lumbar back pain with radiculopathy affecting lower extremity M54.16
[2021-11-03 21:32] VITALS: BP 142/82; PULSE 68; RESP 18; TEMP 36.5; O2SAT 96
[2021-11-03] MEDS: calcium carbonate 500 mg Chew Tablet 1000 MG PO (21:46)
[2021-11-04 06:00] VITALS: BP 120/81; PULSE 70; RESP 18; TEMP 36.8; O2SAT 94
[2021-11-04] MEDS: ARIPiprazole 30 mg Tablet 15 MG PO (09:39)
[2021-11-04] MEDS: thiamine 100 mg Tablet PO (09:39)
[2021-11-04] MEDS: escitalopram 10 mg Tablet PO (09:39)
--- NOTE | 2021-11-04 10:26 | PC.NURSE ---
Am Assessment Patient resting in bed with eyes closed when staff entered room. He is pleasant and cooperative, able to state name and date of . He denies pain at this time. Hr regular and even with ppp x 2, no edema noted. Lungs clear with breathing even and non labored. Bowel sounds active in all quads, abd soft and non tender. patient states last bm 11/03/21. Denies pain with urination. Skin is warm and dry. Patient denies SI, HI, or hallucinations at this time. He was present in morning group. He denies needs at this time.
--- NOTE | 2021-11-04 10:49 | W.PM.NPUDCS ---
Diagnoses at Discharge Discharge Diagnosis (1) Major depressive disorder with psychotic features: Status: Acute (2) Altered mental status: Status: Acute (3) Acute psychosis: Status: Acute (4) Lumbar back pain with radiculopathy affecting lower extremity: Status: Acute Reason for Visit Reason for Visit: AMS Brief History: History of Present Illness Benja Nicole is a 51 year old male who presented to the emergency department with the following report: Chief Complaint: P sychiatric Symptom s Stated Complaint : MHE Time Seen by Provider: 2 17:16 Source: joseph foreign (spouse) Mode of arrival: ambul atory? ? History of Present Illness:??? This patient is br ought to the emerg ency department by his spouse.? She provides most of t he history as the patient is really reluctant to commu nicate much with t his physician.? Sh e states that she has noted over the past number of da ys that he has bec ome more withdrawn and also she is n oted that he is palafox ving more auditory hallucinations.? She states that th ere are periods wh ere he will seem t o interact in a no rmal fashion none there were more pr olonged periods mo re recently when h e begins to withdr aw and going to hi s own world .? Sh e states that he o ccasionally had ep isodes like this i n the past and use d to drink quite h eavily but has not drank for the las t 6 months.? She r elates that he has never had thought s of harming himse lf and has not exp ressed any of thos e thoughts recentl y.? He really is o therwise healthy t akes no daily medi cines other than o ccasional over-the -counter analgesic s for her chronic back pain.? He has had no history of drug use.? He has had no recent ill ness cough fever n ausea vomiting yony rrhea expect etc.? No history of hea d trauma.? He has never been treated for any psychiatr ic illnesses previ ously. Duration: i ntermittent and ge tting worse Associ ated symptoms: Rep orts auditory bourne ucinations and vis ual hallucinations ; Deny homicidal i deation or suicida l ideation Treatme nts prior to arriv al: none He was admitted to the neuropsychiatric unit for definitive treatment of those issues.? Multiple attempts were made to speak with him during the day as he had limited conversation with people often being mute in exchanges.? Eventually he did come to the front end developer designer and request to see this remote mortgage underwriter as he stated he wanted to leave.? I walked into the hallway saw him going into his room and same but he.? I got to his room as he was sitting down on his bed and I said his name 2 more times while entering the room again no response I turn the light on and moved over to his bedside and he closed his eyes and sat there and never opened his eyes again, never blinked or move his eyeballs just that there Adilson breathing with his eyes closed.? I began asking him questions to engage so that he had a conversation about his hospitalization and the concerns that were raised reportedly by his .? He had no response to this.? I reported to him that for me to feel comfortable with him leaving and not feel the need to put him on a 96-hour hold I would need for him to talk to me about what is going on he never even received weekly during that time I sat there asking questions and attempting to initiate his evaluation.? Conversation with his could add no legitimate information as to why he would be behaving in this odd mute way.? As stated above there has been episodes that were strange but reportedly never like this. Hospital Course Hospital Course He very slowly acclimated to the individual, group and milieu therapies provided. He was initially mute and mostly unresponsive and clearly psychotic. He was initiated on Lexapro and Abilify with significant improvement but clearly has a baseline oddness/flatness. His aendrsed that he had returned to baseline more or less and he was able to contract for safety outside the hospital, prior to discharge. It is noteworthy that the timing of this psychotic break did have significant placement in a anniversary period of a likely traumatic issue involving his father. During the hospitalization, patient had routine laboratory studies which were within normal limits except for few outliers. Additionally there was a general medical evaluation which was also within normal limits and revealed no new acute processes. He did have a neurologist consult during his stay with no major or significant findings. Discharge Summary: At the time of discharge, lethality was denied and psychosis was resolving. Mood and anxiety were well managed. Patient endorsed a plan to avoid all drugs of abuse and follow-up with the aftercare recommendations of the treatment team. Patient was evaluated and deemed to be absent credible lethality, and had achieved the maximum benefit from an inpatient hospitalization, so was discharged. Mental Status Exam MSE Comments: This is a overweight versus obese white male in hospital scrubs with adequate grooming but limited eye contact.? No abnormal movements except for some stiffness that is improving and psychomotor retardation.? Slightly more cooperative with exam in no acute distress.? Speech was once again very limited, with more spontaneity in verbal responses, and more interactive and responsive with greater expression with his face/body.? Mood described as better, affect less odd and brighter, but still flat.? Thought process appeared linear, moving towards greater organization Thought content: He denied suicidal or homicidal ideation, did not report delusions but appeared to have some paranoia/guardedness, it was unclear whether he was responding to internal stimuli.? Attention and concentration were limited and memory was unable to be determined but none were formally tested.? He is alert and oriented to self.? Insight and judgment appear limited, but improving. Impulse control appears limited. Discharge Data Studies Completed and Pending: Completed Studies During Hospitalization Category Date Time Status CT head wo con* [id number] Urgent Cat Scan 10/23/21 17:57 Completed MR head wo/w con [id number] Routine MRI 10/29/21 10:15 Completed Pending at discharge Category Date Time Status EEG electroenceph alogram Routine Exams 10/27/21 17:49 Ordered Radiology Impressions Head CT 10/23/21 17:57 IMPRESSION: No acute intracranial abnormality. Head MRI 10/29/21 10:15 IMPRESSION: 1. No acute infarct or enhancing mass. 2. No significant volume loss or atrophy. Laboratory Results WBC 11.1 10^3/uL (4.0 -10.0) H 10/28/21 10:16 RBC 6.18 10^6/uL (4.1 -5.3) H 10/28/21 10:16 Hgb 18.3 g/dL (11.7-1 6.6) H 10/28/21 10:16 Hct 53.7 % (42.0-52.0 ) H 10/28/21 10:16 MCV 86.9 fl (80-94) 10/28/21 10:16 MCH 29.6 pg (28.0-34. 0) 10/28/21 10:16 MCHC 34.1 g/dL (30.0-3 6.0) 10/28/21 10:16 RDW 11.7 % (12.1-15.1 ) L 10/28/21 10:16 Plt Count 263 10^3/cmm (130 -400) 10/28/21 10:16 MPV 11.6 fL (7.4-10.4 ) H 10/28/21 10:16 Neut % (Auto) 70.6 % 10/28/21 10:16 Lymph % (Auto) 20.5 % 10/28/21 10:16 [place] % (Auto) 7.7 % 10/28/21 10:16 Eos % (Auto) 0.3 % 10/28/21 10:16 Baso % (Auto) 0.6 % 10/28/21 10:16 Neut # (Auto) 7.80 10^3/uL (1.8 -7.7) H 10/28/21 10:16 Lymph # (Auto) 2.3 10^3/uL (0.8- 4.8) 10/28/21 10:16 [place] # (Auto) 0.9 10^3/uL (0.2- 0.9) 10/28/21 10:16 Eos # (Auto) 0.0 10^3/uL (0.0- 0.8) 10/28/21 10:16 Baso # (Auto) 0.1 10^3/uL (0.0- 0.1) 10/28/21 10:16 Nucleated RBC % (a uto) 0 % 10/28/21 10:16 Nucleated RBCs # 0.0 /100WBC 10/28/21 10:16 ESR 7 mm/hr (0-10) 10/28/21 10:16 Sodium 136 mmol/L (136-1 45) 10/28/21 10:16 Potassium 4.0 mmol/L (3.5-5 .1) 10/28/21 10:16 Chloride 102 mmol/L (98-10 7) 10/28/21 10:16 Carbon Dioxide 24 mmol/L (22-29) 10/28/21 10:16 Anion Gap 14.0 (5-19) 10/28/21 10:16 BUN 12 mg/dL (6-20) 10/28/21 10:16 Creatinine 0.8 mg/dL (0.7-1. 2) 10/28/21 10:16 GFR Calculation 101.5 mL/min (90- 130) 10/28/21 10:16 Glucose 171 mg/dL (65-115 ) H 10/28/21 10:16 Calculated Osmolal ity 286 mOsm/kg (285- 295) 10/28/21 10:16 Calcium 9.0 mg/dL (8.5-10 .5) 10/28/21 10:16 Total Bilirubin 0.3 mg/dL (0.15-1 .2) 10/28/21 10:16 AST 16 U/L (0-40) 10/28/21 10:16 ALT 28 U/L (0-41) 10/28/21 10:16 Alkaline Phosphata se 96 IU/L (40-130) 10/28/21 10:16 Total Protein 7.2 g/dL (6.6-8.7 ) 10/28/21 10:16 Albumin 4.4 g/dL (3.5-5.2 ) 10/28/21 10:16 Globulin 2.8 g/dL (1.3-4.6 ) 10/28/21 10:16 Vitamin B12 447 pg/mL (232-12 45) 10/28/21 10:16 TSH 1.10 uIU/mL (0.27 -4.20) 10/23/21 17:26 Salicylates < 0.3 mg/dL (3-10 ) L 10/23/21 17:26 Urine Opiates Scre en Negative ng/mL (N egative) 10/23/21 17:30 Acetaminophen < 5.0 ug/mL (10-3 0) L 10/23/21 17:26 Ur Barbiturates Sc reen Negative ng/mL (N egative) 10/23/21 17:30 Ur Phencyclidine S crn Negative ng/mL (N egative) 10/23/21 17:30 Ur Amphetamines Sc reen Negative ng/mL (N egative) 10/23/21 17:30 U Benzodiazepines Scrn Negative ng/mL (N egative) 10/23/21 17:30 Urine Cocaine Scre en Negative ng/mL (N egative) 10/23/21 17:30 U Marijuana (THC) Screen Negative ng/mL (N egative) 10/23/21 17:30 Ethyl Alcohol < 10 mg/dL (0-10) 10/23/21 17:26 Coronavirus 229E ( PCR) Not detected (NO T DETECT) 10/23/21 18:38 SARS-CoV-2 (PCR) Not detected (NO T DETECT) 10/23/21 18:38 Vitals: Last Vital Signs Temp 98.2 F 11/04/21 06:00 Pulse 70 11/04/21 06:00 Resp 18 11/04/21 06:00 BP 120/81 11/04/21 06:00 Pulse Ox 94 11/04/21 06:00 Discharge Plan Discharge Patient Disposition: Home Condition: Stable Prescriptions: New escitalopram oxalate 10 mg Tablet 10 mg PO DAILY 30 Days Qty: 30 1RF aripiprazole 30 mg Tablet 15 mg PO DAILY 30 Days Qty: 15 1RF Vitamin B-1 (mononitrate) 100 mg Tablet 100 mg PO DAILY 30 Days Qty: 30 1RF Discharge Orders: Discharge Order (Routine); Ordered 11/04/21 Ordered By: Jose Pedraza Referrals: [facility] [Outside] - 11/06/21 1:45 pm (Carmen Ledesma Initial assessment) Demetria Wu MD [Primary Care Provider] - Discharge Diet: Regular Discharge Activity: Resume usual activity Patient Instructions: Escitalopram (By mouth) (Lexapro), Aripiprazole (By mouth), Depression (DC), Opioid Safety Discharge Attestations NPU Time Spent in Discharge Care*: less than 30 min Specific Discharge Activities: Specific discharge activities: educating patient, discussing with nurse case management/social workers/dc planners, documenting/other paperwork and evaluating patient/reviewing data Coding Level of Care Code Acute Chg FW DC note Diagnoses Major depressive disorder with psychotic features F32.3 Altered mental status R41.82 Acute psychosis F23 Lumbar back pain with radiculopathy affecting lower extremity M54.16
--- NOTE | 2021-11-04 12:56 | NPU.GN ---
[facility] Group Topic: Self Care General Mood of Group: Benja did attend group today. He was pleasant and informative on the topic to the other clients. Benja seems to be stable at this time. His hygiene was good.
[2021-11-04 14:00] VITALS: BP 138/78; PULSE 88; RESP 17; TEMP 36.6; O2SAT 98
== END 2021-11-04 17:23 | disposition home or self-care (01) | DRG 885 ==
LOC: ER 18:11 → NP 20:00
PROVIDERS: Physician Assistant; Specialist; Admitting Provider Psychiatry & Neurology Psychiatry; Emergency Provider Emergency Medicine; PCP Family Medicine; Visit Provider Psychiatry & Neurology Psychiatry
DX: F32.3 Major depressive disorder, single episode, severe with psychotic features (principal); Z87.891 Personal history of nicotine dependence; F10.21 Alcohol dependence, in remission; G89.29 Other chronic pain; M54.16 Radiculopathy, lumbar region; M54.32 Sciatica, left side; M54.31 Sciatica, right side
CPT/HCPCS: 70450; 70553; 80053; 80306; 80307; 82607; 84443; 85025; 85651; 87635; 97150; 97165; 99285; A9577

== ENCOUNTER → 2022-01-26 10:15 | Outpatient (BNVA) | payer MEDICAID, SELFPAY | PROVIDERS: PCP Family Medicine; Visit Provider Nurse Practitioner Family | DX: E11.9 Type 2 diabetes mellitus without complications (principal) | CPT/HCPCS: 80053; 80061; 83036; 84443; 85025 ==

== ENCOUNTER → 2022-05-12 11:38 | Outpatient (BNVA) | payer MEDICAID, SELFPAY ==
[2022-03-17 15:54] VITALS: BP 147/96; BMI 29.0
== END ==
PROVIDERS: PCP Family Medicine; Visit Provider Nurse Practitioner Family
DX: F32.3 Major depressive disorder, single episode, severe with psychotic features (principal); E11.9 Type 2 diabetes mellitus without complications; R03.0 Elevated blood-pressure reading, without diagnosis of hypertension; Z12.11 Encounter for screening for malignant neoplasm of colon; Z12.5 Encounter for screening for malignant neoplasm of prostate
CPT/HCPCS: 80053; 80061; 83036; 83721; 84443; 85025; G0103

== ENCOUNTER → 2022-05-28 10:37 | Outpatient (BNVA) | payer MEDICAID, OTHER, SELFPAY ==
[2022-03-17 15:54] VITALS: BP 147/96; BMI 29.0
== END ==
PROVIDERS: PCP Family Medicine; Visit Provider Surgery
DX: Z12.11 Encounter for screening for malignant neoplasm of colon (principal)
CPT/HCPCS: 99024

== ENCOUNTER 2022-07-30 05:37 | Day surgery (SDC) | payer MEDICAID, SELFPAY ==
[2022-03-17 15:54] VITALS: BP 147/96; BMI 29.0
[2022-07-28 08:38] VITALS: BMI 30.1
[2022-07-30 06:03] VITALS: BP 162/102; PULSE 71; RESP 18; TEMP 36.3; O2SAT 98
[2022-07-30] MEDS: sodium chloride 0.9% 1,000 ML 30 ML IV (06:14)
[2022-07-30 06:24] LABS: Glucose Point of Care 131 mg/dL (70-110)
--- NOTE | 2022-07-30 06:26 | P.HP_ITS ---
Same Day Surgery H&P Indication for Procedure/HPI DATE OF PROCEDURE: July 30, 2022 CHIEF COMPLAINT/INDICATIONFOR SURGICAL PROCEDURE: Screening colonoscopy PREOP DIAGNOSIS: Screening colonoscopy PLANNED PROCEDURE: Operation Date: 07/30/22 07:00 Proposed Procedures p Colonoscopy 85674,Z12.11(Not Applicable) - Daniel Delcid MD This is a pleasant 52 years old gentleman referred to my practice for screening colonoscopy. Patient never had a colonoscopy before and denies bleeding per rectum or history of colon cancer or nonintentional weight loss or change in bowel movements. ROS All systems have been reviewed negative except as for the above or per problem list. Medications/Allergies* Allergies/Adverse Reactions Allergy/AdvReac Type Severity Reaction Status Date / Time No Known Allergies Allergy Verified 07/30/22 06:27 Current Medications: Generic Name Dose Route Start Last Admin Trade Name Freq PRN Reason Stop Dose Admin Sodium Chloride 1,000 mls @ 30 mls/hr 07/29/22 12:45 07/30/22 06:14 Sodium Chloride 0.9% IV 07/30/22 12:44 30 mls/hr .Q24H MARY Administration Pertinent History/Comorbid Conditions* Medical History (Updated 01/27/22 @ 00:00 by ) Lumbar back pain with radiculopathy affecting lower extremity Psychiatric care Sciatic leg pain both Type 2 diabetes mellitus Surgical History (Updated 08/18/21 @ 16:11 by ROBLES Hdez) No significant past surgical history Family History (Updated 08/18/21 @ 16:12 by ROBLES Hdez) Diabetes Father Sister Cancer Mother Mandible Social History Smoking and tobacco status: former smoker Second hand smoke exposure: No Alcohol intake: former Desire information about alcohol rehabilitation?: No Counseling given: No Desire information about substance/drug rehabilitation?: No Counseling given: No Adopted: No Caregiver/support person: No Lives independently: Yes Household members: spouse, family and children Housing: House Marital status: Number of children: 1 Highest education level completed: High School Graduate service: No Current occupational status: disabled Current occupational exposures/hazards: No Pets and animals: Yes Pets & animals: cat(s), dog(s) and farm animals Farm Animals: chicken/turkey/other poultry History of recent travel: No Leisure activites: reading and other Leisure activities details: walk,go to the river Current gender identity: Male Angeline/Lutheran: None Agree to transfusion: Yes Financial difficulty paying for basics: Not Very Hard Pertinent Exam Findings alert, oriented x 3, clear to auscultation bilaterally, regular rate & rhythm and procedure specific exam findings (Abdominal exam nontender nondistended soft) Recommendations Surgery/Procedure today (Colonoscopy with possible biopsy.) Other Plans: Plan of care; After thorough history and physical examination and reviewing the chart, plan to perform screening colonoscopy. I discussed with the patient in details the risks,benefits,alternatives and indications.The risk of aspiration, bleeding, soft tissue injury, perforation of the colon ,missed lesions and other potential concomitant complications were explained to the patient in details,also the potential need for Laproscoy/Laparotomy to repair any related complications including but not limited to colectomy and or Closotomy.The patient understood this well and did agree to proceed. Rationale was carefully and clearly discussed with the patient.Appropriate informed consent have been reviewed and signed All questions have been answered and all concerns have been addressed to patient's satisfaction. Verbal and written Instructions were given to the patient for colonoscopy prep Coding Level of Care Code Acute Shipping Helper for Juan Manuel Vargas
--- NOTE | 2022-07-30 06:35 | ANES.PREANE2 ---
Pre-Anesthetic Assessment Height/Weight: Height 1.78 m Weight 95.254 kg Temp Pulse Resp BP Pulse Ox O2 Del Method 97.4 F L 71 18 162/102 98 07/30/22 06:03 07/30/22 06:03 07/30/22 06:03 07/30/22 06:03 07/30/22 06:03 07/30/22 06:03 Preop Diagnosis: Screening colonoscopy Operation Date: 07/30/22 07:00 Proposed Procedures p Colonoscopy 24496,Z12.11(Not Applicable) - Daniel Delcid MD Familial anesthetic complications: no history of anesthesia, no family history. Last intake: Intake Last Liquid Date 07/29/22 Last Liquid Time 20:30 Last Solid Date 07/28/22 Last Solid Time 19:00 Social Alcohol (1-2 drinks on weekends.) and No tobacco Airway Submandibular: within normal limits Cervical ROM: within normal limits Mallampati: Class II Dentition: full Pulmonary None reported CV/HEM None reported None reported Hepatic None reported GI Gastroesophageal Reflux Disease Metabolic Diabetes Mellitus and Hyperlipidemia Musc/skel visible tremor at rest patient denies any neurological conditions patients states its from aripiprazole scheduled to see primary care to discuss 07/31/22 Neuropsych Anxiety and Depression Acute Psychosis and AMS listed on chart Anesthetic Plan ASA status: 3 Anesthesia: MAC Medications/Allergies Home Medications Medication Instructions Recorded Confirmed Last Taken Type thiamine mononitrate (vit B1) 100 100 mg PO DAILY 30 days #30 tabs 11/04/21 07/28/22 07/28/22 Rx mg tablet (Vitamin B-1 (mononitrate)) blood sugar diagnostic (Blood #100 ea 01/26/22 05/28/22 07/28/22 Rx Glucose Test strips) blood-glucose meter #1 ea 01/26/22 05/28/22 07/28/22 Rx lancets 31 gauge #100 ea 01/26/22 05/28/22 07/28/22 Rx aripiprazole 30 mg tablet 15 mg PO DAILY 30 days #15 tabs 05/12/22 07/28/22 07/28/22 Rx escitalopram oxalate 10 mg tablet 10 mg PO DAILY 30 days #30 tabs 05/12/22 07/28/22 07/28/22 Rx metformin 500 mg tablet,extended 500 mg PO BID #60 tabs 08/07/30/22 07/29/22 08:00 Rx release 24 hr Allergies Allergy/AdvReac Type Severity Reaction Status Date / Time No Known Allergies Allergy Verified 07/30/22 06:27 Current Medications Generic Name Dose Route Start Last Admin Trade Name Era PRN Reason Stop Dose Admin Sodium Chloride 1,000 mls @ 30 mls/hr 07/29/22 12:45 07/30/22 06:14 Sodium Chloride 0.9% IV 07/30/22 12:44 30 mls/hr .Q24H MARY Administration PFSH Anesthesia Medical History Lumbar back pain with radiculopathy affecting lower extremity Psychiatric care Sciatic leg pain both Type 2 diabetes mellitus Surgical History No significant past surgical history Family History Father Diabetes Mother Cancer Mandible Sister Diabetes Social History Smoking and tobacco status: former smoker Second hand smoke exposure: No Alcohol intake: former Desire information about alcohol rehabilitation?: No Counseling given: No Desire information about substance/drug rehabilitation?: No Counseling given: No Adopted: No Caregiver/support person: No Lives independently: Yes Household members: spouse, family and children Housing: House Marital status: Number of children: 1 Highest education level completed: High School Graduate service: No Current occupational status: disabled Current occupational exposures/hazards: No Pets and animals: Yes Pets & animals: cat(s), dog(s) and farm animals Farm Animals: chicken/turkey/other poultry History of recent travel: No Leisure activites: reading and other Leisure activities details: walk,go to the river Current gender identity: Male Angeline/Buddhism: None Agree to transfusion: Yes Financial difficulty paying for basics: Not Very Hard Data Anesthesia Cardiac Studies: No Data to Display
[2022-07-30 07:18] VITALS: BP 108/76; PULSE 68; RESP 16; TEMP 36.4; O2SAT 95
[2022-07-30 07:35] VITALS: BP 136/102; PULSE 64; RESP 18; O2SAT 94
--- NOTE | 2022-07-30 13:22 | ANE.PACU2 ---
Inpatient post-anesthesia follow up: Airway intact: Yes Vital signs: Temperature 97.6 F Pulse Rate 64 Respiratory Rate 18 Blood Pressure 136/102 Pulse Oximetry 94 Oxygen Delivery Me thod Room Air Oxygen Flow Rate 94 Fraction of Inspir ed Oxygen Hydration adequate: Yes Nausea and vomiting: No Pain level: 1 Mental status: Baseline
== END 2022-07-30 07:53 | disposition home or self-care (01) ==
PROVIDERS: PCP Family Medicine; Visit Provider Surgery
PROC: 0DJD8ZZ Inspection of Lower Intestinal Tract, Via Natural or Artificial Opening Endoscopic (ICD-10-PCS; CPT 45378; principal; 2022-07-30 07:00)
DX: Z12.11 Encounter for screening for malignant neoplasm of colon (principal); K57.30 Diverticulosis of large intestine without perforation or abscess without bleeding; D12.5 Benign neoplasm of sigmoid colon; E11.9 Type 2 diabetes mellitus without complications; Z87.891 Personal history of nicotine dependence; K21.9 Gastro-esophageal reflux disease without esophagitis; E78.5 Hyperlipidemia, unspecified; Z79.84 Long term (current) use of oral hypoglycemic drugs
CPT/HCPCS: 36416; 45385; 82962; 88305; J2704; J7030

== ENCOUNTER → 2023-04-16 11:38 | Outpatient (BNVA) | payer MEDICAID, SELFPAY ==
[2022-03-17 15:54] VITALS: BP 147/96; BMI 29.0
== END ==
PROVIDERS: PCP Family Medicine; Visit Provider Family Medicine
DX: E11.9 Type 2 diabetes mellitus without complications (principal); Z13.6 Encounter for screening for cardiovascular disorders; F41.9 Anxiety disorder, unspecified; F32.A Depression, unspecified
CPT/HCPCS: 80053; 80061; 83036; 83721

== ENCOUNTER → 2023-07-20 11:24 | Outpatient (BNVA) | payer MEDICAID, SELFPAY ==
[2022-03-17 15:54] VITALS: BP 147/96; BMI 29.0
== END ==
PROVIDERS: PCP Family Medicine; Visit Provider Family Medicine
DX: E11.9 Type 2 diabetes mellitus without complications (principal); Z13.6 Encounter for screening for cardiovascular disorders
CPT/HCPCS: 80053; 80061; 83036; 83721

== ENCOUNTER → 2024-03-24 11:51 | Outpatient (BNVA) | payer MEDICAID, SELFPAY ==
[2022-03-17 15:54] VITALS: BP 147/96; BMI 29.0
== END ==
PROVIDERS: PCP Family Medicine; Visit Provider Family Medicine
DX: F41.9 Anxiety disorder, unspecified (principal); F32.A Depression, unspecified; E11.9 Type 2 diabetes mellitus without complications; Z13.6 Encounter for screening for cardiovascular disorders; I10 Essential (primary) hypertension
CPT/HCPCS: 80053; 80061; 83036; 83721

== ENCOUNTER → 2024-06-02 12:02 | Outpatient (BNVA) | payer MEDICAID, SELFPAY ==
[2022-03-17 15:54] VITALS: BP 147/96; BMI 29.0
== END ==
PROVIDERS: PCP Family Medicine; Visit Provider Family Medicine
DX: E11.9 Type 2 diabetes mellitus without complications (principal); E78.1 Pure hyperglyceridemia
CPT/HCPCS: 80053; 80061; 83036; 83721

== ENCOUNTER 2024-07-23 10:02 | Emergency (ER) | payer MEDICAID, SELFPAY ==
[2022-03-17 15:54] VITALS: BP 147/96; BMI 29.0
--- NOTE | 2024-07-23 10:05 | XRR_ITS ---
PROCEDURE INFORMATION: Exam: XR Chest Exam date and time: 07/23/2024 10:20 AM Age: 54 years old Clinical indication: Pain; Chest pressure; Additional info: Cp TECHNIQUE: Imaging protocol: Radiologic exam of the chest. Views: 1 view. COMPARISON: No relevant prior studies available. FINDINGS: Lungs: The lungs are clear. Pleural spaces: No pneumothorax or pleural effusion. Heart/Mediastinum: Cardiomediastinal silhouette is unremarkable. Bones/joints: No acute osseous or soft tissue abnormality. XR/XR chest 1V portable [id number] IMPRESSION: No acute cardiopulmonary abnormality.
[2024-07-23 10:10] VITALS: BP 160/91; PULSE 71; RESP 18; TEMP 36.6; O2SAT 98; BMI 29.7
[2024-07-23 10:35] LABS: Basophils # 0.1 10^3/uL (0.0-0.1); Basophils % 0.7 %; Eosinophils # 0.1 10^3/uL (0.0-0.8); Hematocrit 51.9 % (37-53); Lymphocytes # 1.6 10^3/uL (0.8-4.8); Mean Corpuscular HGB Conc 33.1 g/dL (30-55); Mean Corpuscular Hemoglobin 29.1 pg (27-33); Mean Corpuscular Volume 87.8 fl (82-101); Mean Platelet Volume 10.4 fL (7.4-10.4); Monocytes # 0.5 10^3/uL (0.2-0.9); Monocytes % 6.7 %; Neutrophils # 5.35 10^3/uL (1.8-7.7); Neutrophils % 70.2 %; Nucleated Red Blood Cells % 0 %; Platelet Count 197 10^3/cmm (157-399); Red Blood Count 5.91 10^6/uL (3.85-5.65); White Blood Count 7.62 10^3/uL (3.29-11.43)
[2024-07-23 10:46] LABS: D Dimer 0.47 ug/mLFEU (0-0.59)
[2024-07-23 10:50] LABS: Troponin(5th) Baseline 8 ng/L (0-15)
[2024-07-23 11:03] LABS: Alanine Aminotransferase 27 U/L (0-41); Albumin Level 4.8 g/dL (3.5-5.2); Alkaline Phosphatase 102 U/L (40-130); Aspartate Amino Transferase 20 U/L (0-40); Blood Urea Nitrogen 5 mg/dL (6-20); Calcium 9.3 mg/dL (8.5-10.5); Carbon Dioxide 25 mmol/L (22-29); Chloride 101 mmol/L (98-107); Creatinine Clr Calc Pharmacy 137.2102; Globulin 2.3 g/dL (1.3-4.6); Glomerular Filtration Rate 117.1 mL/min (90-130); Glucose 169 mg/dL (65-115); Osmolality Calculated 287 mOsm/kg (285-295); Sodium 138 mmol/L (136-145); Total Bilirubin 0.3 mg/dL (0.15-1.2); Total Protein 7.1 g/dL (6.6-8.7)
[2024-07-23 13:00] LABS: Troponin 5 2HR 7.06 ng/L (0-15)
[2024-07-23 13:04] LABS: Troponin 5 2HR Delta -0.94 ABS# (0-10)
--- NOTE | 2024-07-23 13:07 | ED_ITS ---
HPI - URI/Sore Throat 2 General: Chief Complaint: Upper Respiratory Infection Stated Complaint: pressue in lung, when breathin it hurts Time Seen by Provider: 07/23/24 13:06 History of Present Illness: 54-year-old male patient comes in today for complaints of tenderness to the right anterior chest wall, cough, and burning in his lungs. Patient reports 1 month ago he was positive for both COVID and influenza and seemed to have gotten over it but over the last week he has had increasing symptoms with nasal drainage cough and congestion and now chest discomfort. Patient appears nontoxic. Patient appears in no acute distress. Patient does have a history of high cholesterol, diabetes mellitus type 2, and some GERD. Associated symptoms: Reports chest pain Related Data Previous Rx's Medication Instructions Recorded thiamine mononitrate (vit B1) 100 100 mg PO DAILY 30 days #30 tabs 11/04/21 mg tablet (Vitamin B-1 (mononitrate)) blood-glucose meter #1 ea 01/26/22 lancets 31 gauge #100 ea 01/26/22 rosuvastatin 20 mg tablet 20 mg PO DAILY cholesterol #90 tabs 04/24/24 omeprazole 40 mg capsule,delayed 40 mg PO DAILY stomach #90 caps 06/02/24 release blood sugar diagnostic (Blood #100 ea 06/05/24 Glucose Test strips) empagliflozin 10 mg tablet 10 mg PO QAM diabetes #90 tabs 06/05/24 (Jardiance) fenofibrate 120 mg tablet 120 mg PO DAILY for triglycerides 06/05/24 #90 tabs metformin 500 mg tablet,extended 500 mg PO BID #60 tabs 06/26/24 release 24 hr duloxetine 30 mg capsule,delayed 30 mg PO DAILY #90 caps 07/13/24 release doxycycline hyclate 100 mg capsule 100 mg PO BID 7 days #14 caps 07/23/24 prednisone 20 mg tablet 20 mg PO DAILY 7 days #7 tabs 07/23/24 Allergies Allergy/AdvReac Type Severity Reaction Status Date / Time No Known Allergies Allergy Verified 06/02/24 11:36 Review of Systems 2 General: Reports: 10 or more systems reviewed and unremarkable except in HPI and below Card: Reports: chest pain Resp: Reports: productive cough PFSH ED 2 PFSH: Medical History (Updated 07/23/24 @ 13:19 by RYAN Cuello) Type 2 diabetes mellitus Lumbar back pain with radiculopathy affecting lower extremity Sciatic leg pain both Surgical History No significant past surgical history Family History Father Diabetes Mother Cancer Mandible Sister Diabetes Social History Smoking and tobacco/nicotine status: former use of tobacco/nicotine Second hand smoke exposure: No Alcohol intake: former Substance/Drug Use: never Adopted: No Caregiver/support person: No Lives independently: Yes Household members: spouse, family and children Housing: House Marital status: Number of children: 1 Highest education level completed: High School Graduate service: No Current occupational status: disabled Current occupational exposures/hazards: No Pets and animals: Yes Pets & animals: cat(s), dog(s) and farm animals Farm Animals: chicken/turkey/other poultry Leisure activites: reading and other Leisure activities details: walk,go to the river Do you think of yourself as: Straight/Heterosexual Current gender identity: Male Angeline/Synagogue: None Agree to transfusion: Yes Physical Exam 2 Const: COMMON NORMALS: alert HENMT: COMMON NORMALS: normocephalic HEAD & SCALP: normocephalic Neck/C-Spine: COMMON NORMALS: full ROM Chest: CHEST: Yes tenderness (Sternal costal margin right side) Resp: COMMON NORMALS: normal respiratory effort AUSCULTATION: diminished lung sounds Cardio: COMMON NORMALS: regular rate and regular rhythm RATE: regular rate RHYTHM: regular rhythm GI: COMMON NORMALS: Soft to palpation and non-tender PALPATION: Yes Soft to palpation Back/Pelvis: COMMON NORMALS: thoracic and lumbar spine normal to inspection Extremity: COMMON NORMALS: normal to inspection Neuro: SENSORIUM/ORIENTATION: Yes alert Skin: COMMON NORMALS: turgor normal GENERAL SKIN EXAM: turgor normal Course 2 Vital Signs: Vital signs: Vital Signs Temperature 97.8 F 07/23/24 10:10 Pulse Rate 71 07/23/24 10:10 Respiratory Rate 18 07/23/24 10:10 Blood Pressure 160/91 07/23/24 10:10 Pulse Oximetry 98 07/23/24 10:10 Oxygen Delivery Me thod Room Air 07/23/24 10:10 MDM - URI/Sore Throat Medical Decision Making 54-year-old male patient comes in today with cough and chest wall tenderness. On exam we note palpable chest tenderness along the sternal costal margin on the right side. Lungs are diminished in the bases. Abdomen soft nontender. Vital signs are normal. Differential diagnosis includes not limited to costochondritis, bronchitis, pneumonia, PE, ACS unlikely. Laboratory values were unremarkable. Chest x-ray was normal. Reviewed exam with patient and family recommended treatment for costochondritis and bronchitis. Patient reported understanding agreed to plan. Lab Data 07/23/24 10:07/23/24 10:26 Radiology Impressions Chest X-Ray 07/23/24 10:05 IMPRESSION: No acute cardiopulmonary abnormality. Laboratory Results WBC 7.62 10^3/uL (3.29-11.43) 07/23/24 10: RBC 5.91 10^6/uL (3.85-5.65) H 07/23/24 10: Hgb 17.20 g/dL (11.27-16.99) H 07/23/24 10: Hct 51.9 % (37-53) 07/23/24 10: MCV 87.8 fl (82-101) 07/23/24 10: MCH 29.1 pg (27-33) 07/23/24 10: MCHC 33.1 g/dL (30-55) 07/23/24 10: RDW 12.0 % (12.1-15.1) L 07/23/24 10: Plt Count 197 10^3/cmm (157-399) 07/23/24 10: MPV 10.4 fL (7.4-10.4) 07/23/24 10: Neut % (Auto) 70.2 % 07/23/24 10: Lymph % (Auto) 21.0 % 07/23/24 10: [place] % (Auto) 6.7 % 07/23/24 10: Eos % (Auto) 1.0 % 07/23/24 10: Baso % (Auto) 0.7 % 07/23/24 10: Neut # (Auto) 5.35 10^3/uL (1.8-7.7) 07/23/24 10:26 Lymph # (Auto) 1.6 10^3/uL (0.8-4.8) 07/23/24 10:26 [place] # (Auto) 0.5 10^3/uL (0.2-0.9) 07/23/24 10:26 Eos # (Auto) 0.1 10^3/uL (0.0-0.8) 07/23/24 10:26 Baso # (Auto) 0.1 10^3/uL (0.0-0.1) 07/23/24 10: Nucleated RBC % (auto) 0 % 07/23/24 10: Nucleated RBCs # 0.0 /100WBC 07/23/24 10: D-Dimer 0.47 ug/mLFEU (0-0.59) 07/23/24 10:26 Sodium 138 mmol/L (136-145) 07/23/24 10: Potassium 4.0 mmol/L (3.5-5.1) 07/23/24 10: Chloride 101 mmol/L (98-107) 07/23/24 10: Carbon Dioxide 25 mmol/L (22-29) 07/23/24 10: Anion Gap 16.0 (5-19) 07/23/24 10: BUN 5 mg/dL (6-20) L 07/23/24 10:26 Creatinine 0.7 mg/dL (0.7-1.2) 07/23/24 10: GFR Calculation 117.1 mL/min (90-130) 07/23/24 10:26 Glucose 169 mg/dL (65-115) H 07/23/24 10: Calculated Osmolality 287 mOsm/kg (285-295) 07/23/24 10: Calcium 9.3 mg/dL (8.5-10.5) 07/23/24 10: Total Bilirubin 0.3 mg/dL (0.15-1.2) 07/23/24 10: AST 20 U/L (0-40) 07/23/24 10: ALT 27 U/L (0-41) 07/23/24 10: Alkaline Phosphatase 102 U/L (40-130) 07/23/24 10: Troponin T Baseline 8 ng/L (0-15) 07/23/24 10:26 Troponin T 120 Minute 7.06 ng/L (0-15) 07/23/24 12:33 Delta Troponin T -0.94 ABS# (0-10) L 07/23/24 12:33 Total Protein 7.1 g/dL (6.6-8.7) 07/23/24 10:26 Albumin 4.8 g/dL (3.5-5.2) 07/23/24 10:26 Globulin 2.3 g/dL (1.3-4.6) 07/23/24 10:26 All radiology interpretation(s) finalized by discharge Discharge Plan Discharge Patient Disposition: Home Clinical Impression: Bronchitis, Costochondritis Condition: Stable Prescriptions: New doxycycline hyclate 100 mg capsule 100 mg PO BID 7 Days Qty: 14 0RF prednisone 20 mg tablet 20 mg PO DAILY 7 Days Qty: 7 0RF No Action omeprazole 40 mg capsule,delayed release(DR/EC) 40 mg PO DAILY Qty: 90 1RF (DME) blood-glucose meter Misc See Rx Instructions .Route Qty: 1 0RF Rx Instructions: As directed (DME) lancets 31 gauge misc See Rx Instructions .Route Qty: 100 3RF Rx Instructions: once daily rosuvastatin 20 mg tablet 20 mg PO DAILY Qty: 90 3RF (DME) Blood Glucose Test Strip See Rx Instructions .Route Qty: 100 3RF Rx Instructions: once daily fenofibrate 120 mg tablet 120 mg PO DAILY Qty: 90 1RF Jardiance 10 mg tablet 10 mg PO QAM Qty: 90 1RF metformin 500 mg tablet extended release 24 hr 500 mg PO BID Qty: 60 5RF duloxetine 30 mg capsule,delayed release(DR/EC) 30 mg PO DAILY Qty: 90 1RF thiamine mononitrate (vit B1) [Vitamin B-1 (mononitrate)] 100 mg Tablet 100 mg PO DAILY 30 Days Qty: 30 1RF Discharge Orders: Discharge ED (Routine); Ordered 07/23/24 Ordered By: Oj Ko Referrals: Jorje Johnson DO [Primary Care Provider] - Discharge Diet: Usual diet Discharge Activity: Increase activity as tolerated Patient Instructions: Costochondritis (ED) Activity Restrictions/Additional Instructions: Home and rest. Drink plenty water and fluids. Follow-up primary care in 1 week. Return to ED for any concerns. Coding Level of Care Code ED Head Of Talent Management for Juan Manuel Vargas
[2024-07-23 13:28] VITALS: BP 137/95; PULSE 79; RESP 18; O2SAT 96
[2024-07-23 13:37] VITALS: BP 137/95; PULSE 79; O2SAT 96
== END 2024-07-23 13:38 | disposition home or self-care (01) ==
PROVIDERS: Emergency Medicine; Emergency Provider Nurse Practitioner Family; PCP Family Medicine
DX: J40 Bronchitis, not specified as acute or chronic (principal); M94.0 Chondrocostal junction syndrome [Tietze]; Z86.16 Personal history of COVID-19
CPT/HCPCS: 36415; 71045; 80053; 84484; 85025; 85378; 99285

== ENCOUNTER → 2024-09-01 10:50 | Outpatient (BNVA) | payer MEDICAID, SELFPAY ==
[2022-03-17 15:54] VITALS: BP 147/96; BMI 29.0
== END ==
PROVIDERS: PCP Family Medicine; Visit Provider Family Medicine
DX: E78.1 Pure hyperglyceridemia (principal); E11.9 Type 2 diabetes mellitus without complications
CPT/HCPCS: 80061; 83036; 83721

== ENCOUNTER 2024-09-27 17:13 | Emergency (ER) | payer MEDICAID, SELFPAY ==
[2022-03-17 15:54] VITALS: BP 147/96; BMI 29.0
[2024-09-27 17:19] VITALS: BP 161/101; PULSE 94; RESP 16; TEMP 36.9; O2SAT 96; BMI 30.1
--- NOTE | 2024-09-27 17:42 | ED.C_ITS ---
HPI - Psych General: Chief Complaint: Psychiatric Symptoms Stated Complaint: bi polar episode Time Seen by Provider: 09/27/24 17:21 Source: patient Limitations: no limitations History of Present Illness: 54-year-old male has a history of bipola r disorder states he has been under a lot of stress within the year finances he states he had had some anger outburst. He denies any suicidality or homicidality. He states that his PCP has been adjusting some of his medication he denies any worsening improving factors. Associated symptoms: Deny depression Related Data Previous Rx's Medication Instructions Recorded thiamine mononitrate (vit B1) 100 100 mg PO DAILY 30 days #30 tabs 11/04/21 mg tablet (Vitamin B-1 (mononitrate)) blood-glucose meter #1 ea 01/26/22 lancets 31 gauge #100 ea 01/26/22 rosuvastatin 20 mg tablet 20 mg PO DAILY cholesterol #90 tabs 04/24/24 omeprazole 40 mg capsule,delayed 40 mg PO DAILY stomach #90 caps 06/02/24 release blood sugar diagnostic (Blood #100 ea 06/05/24 Glucose Test strips) fenofibrate 120 mg tablet 120 mg PO DAILY for triglycerides 06/05/24 #90 tabs metformin 500 mg tablet,extended 500 mg PO BID #60 tabs 07/24/24 release 24 hr empagliflozin 25 mg tablet 25 mg PO QAM diabetes #90 tabs 09/11/24 duloxetine 30 mg capsule,delayed 30 mg PO DAILY #90 caps 09/26/24 release Allergies Allergy/AdvReac Type Severity Reaction Status Date / Time No Known Allergies Allergy Verified 09/01/24 10:24 Review of Systems Const: Denies: fever(s), chills, body aches or change in appetite ENMT: Denies: throat pain or dental pain Card: Denies: chest pain Resp: Denies: dyspnea GI: Denies: abdominal pain, nausea, vomiting or diarrhea Musc: Denies: neck pain or back pain Skin/Breast: Denies: rash Neuro: Denies: headache(s) Psych: Denies: depression Tam/Lymph: Denies: easy bruising All/Imm: Denies: urticaria PFSH ED PFSH: Medical History Type 2 diabetes mellitus Lumbar back pain with radiculopathy affecting lower extremity Sciatic leg pain both Surgical History No significant past surgical history Family History Father Diabetes Mother Cancer Mandible Sister Diabetes Social History Smoking and tobacco/nicotine status: former use of tobacco/nicotine Second hand smoke exposure: No Alcohol intake: former Substance/Drug Use: never Adopted: No Caregiver/support person: No Lives independently: Yes Household members: spouse, family and children Housing: House Marital status: Number of children: 1 Highest education level completed: High School Graduate service: No Current occupational status: disabled Current occupational exposures/hazards: No Pets and animals: Yes Pets & animals: cat(s), dog(s) and farm animals Farm Animals: chicken/turkey/other poultry Leisure activites: reading and other Leisure activities details: walk,go to the river Do you think of yourself as: Straight/Heterosexual Current gender identity: Male Angeline/Adventism: None Agree to transfusion: Yes Physical Exam Const: COMMON NORMALS: no acute distress, patient oriented x3 and healthy appearing HENMT: COMMON NORMALS: normocephalic and atraumatic HEAD & SCALP: normocephalic and atraumatic Eye: COMMON NORMALS: conjunctivae normal CONJUNCTIVA: Yes conjunctivae normal Neck/C-Spine: COMMON NORMALS: full ROM and supple Chest: COMMONS NORMALS: normal inspection of the chest Resp: COMMON NORMALS: normal respiratory effort, No retractions, No use of accessory muscles and clear to auscultation bilaterally AUSCULTATION: clear to auscultation bilaterally Cardio: COMMON NORMALS: regular rate, regular rhythm and No murmurs present (Cardio) RATE: regular rate RHYTHM: regular rhythm Extremity: COMMON NORMALS: normal to inspection and full ROM Neuro: COMMON NORMALS: patient oriented x3, moves all extremities and no focal motor deficits Psych: COMMON NORMALS: mental status grossly normal, Normal thought process present and cooperative THOUGHT PROCESS: Normal thought process present Skin: COMMON NORMALS: no rashes or lesions noted and no wounds GENERAL SKIN EXAM: no rashes or lesions noted Course Vital Signs: Vital signs: Vital Signs Temperature 98.4 F 09/27/24 17:19 Pulse Rate 94 09/27/24 17:19 Respiratory Rate 16 09/27/24 17:19 Blood Pressure 161/101 09/27/24 17:19 Pulse Oximetry 96 09/27/24 17:19 MDM - Psych Medical Decision Making Patient presents with being under stress with some anger outburst he is not suicidal homicidal I did speak to him at length I offered him admission here he states that he is going to call his primary care doctor tomorrow to get an appointment he is not homicidal suicidal he is stable for discharge I informed him he does need to follow-up with PCP and if anything worsens he is to return he understands and agrees to plan No radiology studies performed this visit Discharge Plan Discharge Patient Disposition: Home Clinical Impression: Stress at home Condition: Stable Prescriptions: No Action omeprazole 40 mg capsule,delayed release(DR/EC) 40 mg PO DAILY Qty: 90 1RF (DME) blood-glucose meter Misc See Rx Instructions .Route Qty: 1 0RF Rx Instructions: As directed (DME) lancets 31 gauge misc See Rx Instructions .Route Qty: 100 3RF Rx Instructions: once daily rosuvastatin 20 mg tablet 20 mg PO DAILY Qty: 90 3RF (DME) Blood Glucose Test Strip See Rx Instructions .Route Qty: 100 3RF Rx Instructions: once daily fenofibrate 120 mg tablet 120 mg PO DAILY Qty: 90 1RF metformin 500 mg tablet extended release 24 hr 500 mg PO BID Qty: 60 5RF empagliflozin 25 mg tablet 25 mg PO QAM Qty: 90 1RF duloxetine 30 mg capsule,delayed release(DR/EC) 30 mg PO DAILY Qty: 90 1RF thiamine mononitrate (vit B1) [Vitamin B-1 (mononitrate)] 100 mg Tablet 100 mg PO DAILY 30 Days Qty: 30 1RF Discharge Orders: Discharge ED (Routine); Ordered 09/27/24 Ordered By: Kristina Hendrickson Referrals: Jorje Johnson, [Primary Care Provider] - 4-7 days Discharge Diet: Advance as tolerated Discharge Activity: Resume usual activity Patient Instructions: Stress (ED) Coding Level of Care Code ED Communications Maintainer for Juan Manuel Vargas
[2024-09-27 17:55] VITALS: BP 154/98; PULSE 90; O2SAT 98
[2024-09-27] MEDS: LORazepam 1 mg Tablet PO (17:55)
== END 2024-09-27 17:56 | disposition home or self-care (01) ==
PROVIDERS: Emergency Provider Emergency Medicine; PCP Family Medicine
DX: F43.9 Reaction to severe stress, unspecified (principal); Z79.84 Long term (current) use of oral hypoglycemic drugs; Z87.891 Personal history of nicotine dependence; E11.9 Type 2 diabetes mellitus without complications
CPT/HCPCS: 99283

== ENCOUNTER → 2024-12-15 11:26 | Outpatient (BNVA) | payer MEDICAID, SELFPAY ==
[2022-03-17 15:54] VITALS: BP 147/96; BMI 29.0
== END ==
PROVIDERS: PCP Family Medicine; Visit Provider Family Medicine
DX: E78.1 Pure hyperglyceridemia (principal); E11.9 Type 2 diabetes mellitus without complications
CPT/HCPCS: 80053; 80061; 83036; 83721

== ENCOUNTER → 2025-03-09 11:46 | Outpatient (BNVA) | payer MEDICAID, SELFPAY ==
[2022-03-17 15:54] VITALS: BP 147/96; BMI 29.0
== END ==
PROVIDERS: PCP Family Medicine; Visit Provider Family Medicine
DX: E78.1 Pure hyperglyceridemia (principal); E11.9 Type 2 diabetes mellitus without complications; I10 Essential (primary) hypertension
CPT/HCPCS: 80053; 80061; 83036; 83721

== ENCOUNTER → 2025-05-31 11:52 | Outpatient (BNVA) | payer MEDICAID, SELFPAY ==
[2022-03-17 15:54] VITALS: BP 147/96; BMI 29.0
== END ==
PROVIDERS: PCP Family Medicine; Visit Provider Family Medicine
DX: I10 Essential (primary) hypertension (principal); E78.1 Pure hyperglyceridemia; E11.9 Type 2 diabetes mellitus without complications
CPT/HCPCS: 80053; 80061; 83036; 83721

== ENCOUNTER → 2025-09-07 10:26 | Outpatient (BNVA) | payer MEDICAID, SELFPAY ==
[2022-03-17 15:54] VITALS: BP 147/96; BMI 29.0
== END ==
PROVIDERS: PCP Family Medicine; Visit Provider Family Medicine
DX: I10 Essential (primary) hypertension (principal); E78.1 Pure hyperglyceridemia; E11.9 Type 2 diabetes mellitus without complications; J11.1 Influenza due to unidentified influenza virus with other respiratory manifestations
CPT/HCPCS: 80053; 80061; 82607; 83036; 83721; 85025